=== PATIENT | male | born 1950 | race Caucasian/White ===

== ENCOUNTER 2018-08-10 00:11 | Outpatient (CLI) | payer MEDICARE, BC, SELFPAY ==
[2018-08-10 11:04] LABS: CREATININE 1.02 mg/dL (0.70-1.30); Potassium 4.7 mmol/L (3.5-5.1); TSH 0.91 uIU/mL (0.358-3.74)
[2018-08-11 08:19] LABS: Hemoglobin A1C 6.7 % (4.5-6.2)
[2018-08-11 23:31] LABS: COMMENT (LAB VIEW ONLY) 215.51 mg/dL; Microalb ug/mg Crea 21.1 ug/mg Cr
== END 2018-08-10 00:31 ==
PROVIDERS: PCP General Practice; Visit Provider General Practice
DX: I10 Essential (primary) hypertension (principal); E11.8 Type 2 diabetes mellitus with unspecified complications; E03.9 Hypothyroidism, unspecified
CPT/HCPCS: 36415; 82043; 82565; 82570; 83036; 84132; 84443

== ENCOUNTER 2019-02-24 07:00 | Outpatient (CLI) | payer MEDICARE, BC, SELFPAY ==
[2019-02-24 08:32] LABS: Hemoglobin A1C 6.5 % (4.5-6.2)
== END 2019-02-24 07:20 ==
PROVIDERS: PCP General Practice; Visit Provider General Practice
DX: E11.9 Type 2 diabetes mellitus without complications (principal)
CPT/HCPCS: 36415; 83036

== ENCOUNTER 2019-07-18 09:47 | Observation (INO) | payer MEDICARE, BC, SELFPAY ==
[2019-07-18] VITALS (87 sets, daily range): BP systolic 98–155; BP diastolic 60–106; PULSE 73–128; RESP 14–45; TEMP 36.5–36.9; O2SAT 93–100
[2019-07-18] MEDS: Normal Saline Flush 10 ML SYR IVP (10:10)
[2019-07-18] MEDS: Aspirin 81 MG CHEW 324 MG CH (10:15)
[2019-07-18 10:31] LABS: Abs Immature Grans 0.01 k/cumm (0.0-0.09); Absolute Basophil Count 0.02 k/cumm (0.0-0.2); Absolute Eosinophil Count 0.12 k/cumm (0.0-0.7); Absolute Monocyte Count 0.59 k/cumm (0.11-0.7); Absolute Neutrophil Count 4.58 k/cumm (1.2-6.7); Basophils % 0.3; Eosinophils % 1.8; HCT 42.5 % (40.0-50.0); HGB 14.6 g/dL (13.5-17.5); Immature Grans % 0.2; Lymphocytes % 19.6; Mean Corp. HGB Concentration 34.4 g/dL (32.0-36.0); Mean Corpuscular Hemoglobin 31.9 pg (27.0-33.0); Mean Platelet Volume 9.9 fL (8.0-11.0); Monocytes % 8.9; Neutrophils % 69.2; Platelet Count 260 x1000/uL (130-400); RBC 4.57 m/cumm (4.50-6.00); RBC Distribution Width 12.8 % (11.8-14.1); White Blood Cell Count 6.62 k/cumm (4.4-10.8)
--- NOTE | 2019-07-18 10:42 | DI.RAD_ITS ---
EXAM: XR CHEST 2V PA LATERAL INDICATION: chest pain. COMPARISON: No exams were available for comparison TECHNIQUE: 2D digital imaging was performed. FINDINGS: Heart is enlarged. Lungs are clear. No pleural effusion seen. IMPRESSION: Negative examination of the chest.
[2019-07-18 10:52] LABS: ALT 67 U/L (16-63); AST 40 U/L (15-37); Albumin 3.8 g/dL (3.4-5.0); Alkaline Phosphatase 69 U/L (46-116); Anion Gap 10.5 mmol/L (3-11); BUN 16 mg/dL (7-18); Bilirubin, Total 1.2 mg/dL (0.2-1.0); CO2 26.5 mmol/L (21.0-32.0); Calcium 9.2 mg/dL (8.5-10.1); Chloride 101 mmol/L (98-107); Estimated GFR 59.86 (mL/min/1.73m2); Glucose 189 mg/dL (70-100); Magnesium 1.4 mg/dL (1.8-2.4); Potassium 4.4 mmol/L (3.5-5.1); Sodium 138 mmol/L (136-145); Total Protein 7.5 g/dL (6.4-8.2)
[2019-07-18 10:53] LABS: Troponin I < 0.05 ng/mL (0.00-0.06)
--- NOTE | 2019-07-18 11:46 | NUR.NOTE ---
patient medicated per PA order Nursing Note:
[2019-07-18] MEDS: Normal Saline 1,000 ML 1000 ML IV (12:34)
--- NOTE | 2019-07-18 12:55 | NUR.NOTE ---
pt removed cervical collar on his own while in radiology reapplied with assist from additional RN Nursing Note:
--- NOTE | 2019-07-18 13:08 | NUR.NOTE ---
cervical collar removed per radiologist negative read Nursing Note:
[2019-07-18 13:58] LABS: Troponin I < 0.05 ng/mL (0.00-0.06)
[2019-07-18] MEDS: MAGNESIUM SULFATE 4 GM/100 ML BAG IVPB (14:51)
--- NOTE | 2019-07-18 16:20 | W.ED.GENAD ---
Discharge Plan Discharge Details Chief Complaint: Chest Pain Primary Care Provider: Dav Ortega ED Provider: Gila Huang Home Meds and New Rx's Prescriptions: No Action levothyroxine 175 MCG tablet 175 mcg PO DAILY RF: 0 simvastatin 80 MG tablet 80 mg PO DAILY RF: 0 metformin 1,000 MG tablet 1,000 mg PO BID RF: 0 lisinopril 40 MG tablet 40 mg PO DAILY RF: 0 insulin glargine [Basaglar KwikPen U-100 Insulin] 100 UNIT/1 ML insulin pen 80 unit SQ DAILY RF: 0 Metoprolol Succinate [Toprol Xl] 50 MG TAB.ER.24H 100 mg PO DAILY RF: 0 aspirin 81 MG tablet,chewable 81 mg PO DAILY RF: 0 multivitamin 1 EACH capsule 1 ea PO DAILY RF: 0 Medical Decision Making This is a very pleasant 68-year-old man accompanied by his for chest pain associated with chest pressure. Accompanied by tingling in the left arm. Concern for possible ACS given patient's medical history and family history. Initial EKG reviewed with my attending Dr. Elaine reveals a rate of 125, normal axis and normal rhythm. Sinus tachycardia noted with no associated ST changes. Attempted vagal maneuver which had no change on his heart rate. Labs ordered for concern of non-ST elevation MT. Patient reevaluated approximately 20 minutes after initial presentation. Patient's heart rate had improved to approximately 100 bpm. Patient's pain continues to improve to approximately 1 out of 10 but does have persistent chest pressure. Patient's initial troponin returned negative. Serial EKG was ordered and ultimately. Access remains normal, heart rate 100, rhythm is regular, junctions point elevation noted diffusely. Reviewed with my attending Dr. Elaine. Given mild change in EKG .3 mg sublingual nitro was given. Patient did report poor entire relief of chest pressure with this dose of nitro within 5 to 10 minutes. 3rd EKG was ordered with no significant change from the second. Given patient's initial complaints and story, full relief of his chest pressure with a sublingual nitro in conjunction to a heart score of 5 I feel its best to keep this patient in the hospital for further evaluation of his complaints today specifically to have a stress test. I spoke with the hospitalist who will accept the patient for admission however will not be able to perform a stress test until Sunday and does recommend reaching out to other facilities whom may have stress testing over the weekend. Eating at the bedside and feeling well. Patient remained stable Neither [facility] nor [facility] have appropriate beds to facilitate this patient's nonstress test this weekend. Patient will be admitted to [facility] for further evaluation of his complaints. Patient agrees with plan of care. Hospitalist agrees to plan of care and will admit the patient HPI General Date/Time Provider Initiated Documentation: 07/18/19 10:11. HPI Narrative: Very pleasant 68-year-old man accompanied by his presents to the emergency room this morning for onset of chest pain at approximately 915 reported to be 8 out of 10 with associated chest pressure. Accompanied left arm tingling was reported. Denies headache, dizziness, nausea, vomiting or abdominal pain. No radiation toward his back or neck. Patient reports nothing made the pain worse. Patient does report the pain has improved steadily since arrival to the emergency room. Patient on presentation reports approximately 3 out of 10 chest pain which continues to improve. Patient denies any diaphoresis or clamminess. Patient has taken no medications prior to arrival. Denies taking aspirin this morning. Patient has a history of hypertension, diabetes. Family history is significant for paternal heart attack at age 55. Patient has no personal history of cardiac events. Patient does get stress tests occasionally and last stress test was approximately 4 years ago and reportedly normal. Denies difficulty breathing, shortness of breath or wheezing. No recent illness. Related Data Home Medications Medication Instructions Recorded Confirmed Metoprolol Succinate [Toprol Xl] 100 mg PO DAILY tab-cap NS 02/26/18 04/18/18 aspirin 81 mg PO DAILY tab-cap 02/26/18 04/18/18 insulin glargine [Basaglar KwikPen 80 unit SQ DAILY NS 02/26/18 04/18/18 U-100 Insulin] levothyroxine 175 mcg PO DAILY tab-cap NS 02/26/18 04/18/18 lisinopril 40 mg PO DAILY tab-cap NS 02/26/18 04/18/18 metformin 1,000 mg PO BID NS 02/26/18 04/18/18 simvastatin 80 mg PO DAILY NS 02/26/18 04/18/18 multivitamin 1 ea PO DAILY 03/26/18 04/18/18 Allergies Allergy/AdvReac Type Severity Reaction Status Date / Time No Known Allergies Allergy Unverified 04/18/18 09:05 General Stated Complaint: Chest Pain SHARAD: 2 Review of Systems Review of Systems ROS Unobtainable: All systems reviewed & are unremarkable except as noted in HPI and below Constitutional Constitutional: Denies chills, Denies excessive sweating, Denies fever(s), Denies lethargy and Denies weakness Cardiovascular Cardiovascular: Denies rapid heart rate, Denies edema, Denies irregular heart rhythm, Denies lightheadedness, Reports radiating jaw, neck or arm pain and Denies dyspnea on exertion Respiratory Respiratory: Denies cough and Denies dyspnea on exertion Gastrointestinal Gastrointestinal: Denies abdominal pain, Denies belching, Denies change in bowel habits, Denies nausea and Denies vomiting Neurologic Neurologic: Denies weakness Endocrine Endocrine: Denies excessive sweating [facility] Medical History Diabetes Hypertension Hypogonadism in male Hypothyroidism 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 Fry Family History Mother , Breast cancer at age 76. Breast cancer Father Throat cancer Heart disease Myocardial infarction Sister No problems noted. Social History Smoking/Tobacco Use Status: Former Tobacco Use Alcohol Intake: current Alcohol Intake frequency: holidays/special occasions only Drug use: Never Do you feel safe at home: Yes Do you feel safe in your relationship?: Yes Exam Narrative Exam Narrative: CONST: Healthy appearing patient, in no acute distress. Well hydrated. Alert and alert. HENMT: Head nomocephalic, normal to inspection. Atraumatic. Hearing grossly normal. External ear canal no erythema or swelling. TM normal bilaterally. Nose normal to inspection. No rhinnorhea. Normal facial exam. Oral mucosa normal. Tounge normal. Dentition normal. Normal posterior oropharynx. Uvula midline. EYES: General normal appearance. Alignment normal. Eyelids normal. Conjunctiva normal. NECK: Normal visual inspection. FROM. No lymphadenopathy. Trachea midline. No Midline tenderness. CHEST: Normal insepection of the chest. RESP: Normal respiratory effort. Speaking full sentences. No cough. No wheezing. No retractions. Clear to auscaltation. Breath sound equal and present bilaterally. CARDIO: No JVD. Normal PMI. Tachycardic on presentation. Regular Rhythm. Normal peripheral pulses. GI: Normal inspection of abdomen. No distension. Soft. Nontender. Bowel sounds present in all 4 quadrants. No rebound. No gaurding. MUSCULOSKELETAL: Normal Gait. FROM of all extremities. Distal neurovascularly intact. Sensation intact distally. No lower leg edema bilaterally SKIN: Normal. Dry. No rashes. NEURO: Alert and awake. Speech clear. PSYCH: Normal affect. Cooperative. Course Vital Signs Vital signs: Vital Signs Respiratory Rate 28 H 07/18/19 09:53 Pulse Oximetry 99 07/18/19 09:53 Temperature 36.7 C 07/18/19 09:56 Temperature Source Temporal Artery Scan 07/18/19 09:56 Pulse 86 07/18/19 16:00 Pulse 84 07/18/19 16:01 Respiratory Rate 40 H 07/18/19 16:00 Respiratory Effort 07/18/19 10:17 Respiratory Depth Normal 07/18/19 10:17 Respiratory Pattern Normal 07/18/19 10:17 Blood Pressure 134/82 07/18/19 16:00 Blood Pressure Mean 92 07/18/19 16:00 Blood Pressure Position Supine 07/18/19 09:56 Pulse Oximetry 98 07/18/19 16:01 Oxygen Delivery Method Room Air 07/18/19 11:47 Oxygen Flow Rate 0 07/18/19 11:47 Pain Level 1 07/18/19 12:23 Lab/Test Results Lab/Test Results: Laboratory Tests Range/Units 07/18/19 07/18/19 07/18/19 10:10 10:10 13:16 WBC (4.4-10.8) k/cumm 6.62 RBC (4.50-6.00) m/cumm 4.57 Hgb (13.5-17.5) g/dL 14.6 Hct (40.0-50.0) % 42.5 MCV (80-95) fL 93.0 MCH (27.0-33.0) pg 31.9 MCHC (32.0-36.0) g/dL 34.4 RDW (11.8-14.1) % 12.8 Plt Count (130-400) x1000/uL 260 MPV (8.0-11.0) fL 9.9 Immature Gran % 0.2 Neutrophils % 69.2 Lymphocytes % 19.6 Monocytes % 8.9 Eosinophils % 1.8 Basophils % 0.3 Absolute Neutrophils (1.2-6.7) k/cumm 4.58 Absolute Lymphocytes (1.2-3.4) k/cumm 1.30 Absolute Monocytes (0.11-0.7) k/cumm 0.59 Absolute Eosinophils (0.0-0.7) k/cumm 0.12 Absolute Basophils (0.0-0.2) k/cumm 0.02 Sodium (136-145) mmol/L 138 Potassium (3.5-5.1) mmol/L 4.4 Chloride (98-107) mmol/L 101 Carbon Dioxide (21.0-32.0) mmol/L 26.5 Anion Gap (3-11) mmol/L 10.5 BUN (7-18) mg/dL 16 Creatinine (0.70-1.30) mg/dL 1.20 Estimated GFR/1.73 m2 (mL/min/1.73m2) 59.86 Glucose (70-100) mg/dL 189 H Calcium (8.5-10.1) mg/dL 9.2 Magnesium (1.8-2.4) mg/dL 1.4 L Total Bilirubin (0.2-1.0) mg/dL 1.2 H AST (15-37) U/L 40 H ALT (16-63) U/L 67 H Alkaline Phosphatase (46-116) U/L 69 Troponin I (0.00-0.06) ng/mL < 0.05 < 0.05 Total Protein (6.4-8.2) g/dL 7.5 Albumin (3.4-5.0) g/dL 3.8
[2019-07-18 17:22] LABS: Troponin I < 0.05 ng/mL (0.00-0.06)
[2019-07-18] MEDS: Heparin 5,000 UNITS/ML VIAL 5000 UNITS SC (18:28)
--- NOTE | 2019-07-18 19:08 | HPE_ITS ---
Date of service: 07/18/19 Time of Service: 19:08 Assessment and Plan Assessment and plan (1) Chest pain: Status: Acute Assessment and plan: Chest pain that occurred with exertion. Troponin negative x3. Chest pain resolved with one nitroglycerine. Pending stress testing on Sunday. PRN nitro for Chest pain. Aspirin 325 mg daily. Hold heparin and plavix per [facility] recommendations as appears to be stable angina. (2) Hypertension: Status: None Assessment and plan: Not currently hypertensive. Continue home regimen with lisinopril and metoprolol. Monitor Blood pressure. (3) Diabetes: Status: None Assessment and plan: Appears well controlled, Hgb A1c in 02/2019 6.5. Repeat Hgb A1c tomorrow morning. Continue home lantus. Hold metfromin. Monitor blood glucose at with short acting insulin via sliding scale. (4) Hypothyroidism: Status: None Assessment and plan: Continue levothyroxine. (5) DVT prophylaxis: Status: Acute Assessment and plan: Subcutaneous heparin. (6) Discharge planning issues: Status: Acute Assessment and plan: He is a full code. MPI Sunday. This case was discussed with Dr. Quintana who is in agreement. History of Present Illness History of Present Illness Chief Complaint: Chest pain Narrative: Mika Skinner is a very pleasant 68 year old man with a past medical history significant for diabetes, hypertension, hyperlipidemia, hypogonadism and hypothyroidism who presented to the ED today with reports of chest pain. He reports that he was crawling around in a closet, moving guns around, preparing for hunting season, when he had sudden onset of severe substernal chest pain. He got up out of the closet and felt dizzy, he then noticed tingling in the fingers of his left hand. His transported him to the ED right away. The pain continued and began to decrease while in the ED. He was given one nitroglycerine tablet with complete resolution of his chest pain. He had a normal EKG, repeat EKG showed slight J point elevation, with follow up with no change. He had no acute ST changes. He was tacycardic on presentation. His troponin was negative. Magnesium was low at 1.4, glucose mildly elevated. He was referred for admission. Due to no stress testing availability over the weekend, [facility] and [facility] were consulted, however, they did not have beds available. He is admitted to the med/surg floor for fur ther evaluation and management. At the time of his admission, he denies any chest pain/pressure or palpitations. He denies diaphoresis or shortness of breath with the episode and at present, no wheezing or coughing. He denies nausea, vomiting, diarrhea, abdominal pain. He denies lower extremity edema. He notes that his left calf is always larger than his right. He reports that he was in his usual state of health prior to the onset of the chest pain earlier. He reports that his father has had MIs, with hx of CABG, and his uncle has had an ME in the past. Review of Systems Review of Systems ROS Unobtainable: All systems reviewed & are unremarkable except as noted in HPI and below PFSH Medical History Diabetes Hypertension Hypogonadism in male Hypothyroidism 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 Fry Family History Mother , Breast cancer at age 76. Breast cancer Father Throat cancer Heart disease Myocardial infarction Sister No problems noted. Social History Smoking/Tobacco Use Status: Former Tobacco Use Alcohol Intake: current Alcohol Intake frequency: holidays/special occasions only Drug use: Never Do you feel safe at home: Yes Do you feel safe in your relationship?: Yes Meds Home Medications and Allergies Home Medications Medication Instructions Recorded Confirmed Type Basaglar KwikPen U-100 Insulin 80 unit SQ DAILY NS 02/26/18 07/18/19 History Metoprolol Succinate [Toprol Xl] 75 mg PO DAILY tab-cap NS 02/26/18 07/18/19 History aspirin 81 mg PO DAILY tab-cap 02/26/18 07/18/19 History levothyroxine 175 mcg PO DAILY tab-cap NS 02/26/18 07/18/19 History lisinopril 40 mg PO DAILY tab-cap NS 02/26/18 07/18/19 History metformin 1,000 mg PO BID NS 02/26/18 07/18/19 History simvastatin 80 mg PO DAILY NS 02/26/18 07/18/19 History multivitamin 1 ea PO DAILY 03/26/18 07/18/19 History Allergies Allergy/AdvReac Type Severity Reaction Status Date / Time No Known Allergies Allergy Unverified 07/18/19 17:10 Exam Narrative Exam Narrative: General: Well-appearing man, laying in bed with head of bed elevated, alert and oriented x3, pleasant cooperative, answers questions appropriately. In no acute distress. HEENT: Normocephalic, atraumatic, pupils equal round, extraocular movements intact, mucous membranes moist. Neck: Supple, no JVD. Cardiovascular: Heart has regular rate and rhythm, no murmur appreciated, non- tachycardic. Respiratory: Respirations even and unlabored, lung sounds clear to auscultation throughout. GI: normal bowel sounds, soft, nondistended, nontender on palpation. Extremities: no clubbing, cyanosis or edema. L calf larger than right, no calf swelling or tenderness. L harding with scar from previous diabetic ulcer. Results Labs Result diagrams: 07/18/19 10:10 07/18/19 10:10 Labs: Laboratory Results - last 24 hr 07/18/19 07/18/19 07/18/19 10:10 10:10 13:16 WBC 6.62 RBC 4.57 Hgb 14.6 Hct 42.5 MCV 93.0 MCH 31.9 MCHC 34.4 RDW 12.8 Plt Count 260 MPV 9.9 Immature Gran % 0.2 Neutrophils % 69.2 Lymphocytes % 19.6 Monocytes % 8.9 Eosinophils % 1.8 Basophils % 0.3 Absolute Neutrophils 4.58 Absolute Lymphocytes 1.30 Absolute Monocytes 0.59 Absolute Eosinophils 0.12 Absolute Basophils 0.02 Sodium 138 Potassium 4.4 Chloride 101 Carbon Dioxide 26.5 Anion Gap 10.5 BUN 16 Creatinine 1.20 Estimated GFR/1.73 m2 59.86 Glucose 189 H Calcium 9.2 Magnesium 1.4 L Total Bilirubin 1.2 H AST 40 H ALT 67 H Alkaline Phosphatase 69 Troponin I < 0.05 < 0.05 Total Protein 7.5 Albumin 3.8 07/18/19 16:59 WBC RBC Hgb Hct MCV MCH MCHC RDW Plt Count MPV Immature Gran % Neutrophils % Lymphocytes % Monocytes % Eosinophils % Basophils % Absolute Neutrophils Absolute Lymphocytes Absolute Monocytes Absolute Eosinophils Absolute Basophils Sodium Potassium Chloride Carbon Dioxide Anion Gap BUN Creatinine Estimated GFR/1.73 m2 Glucose Calcium Magnesium Total Bilirubin AST ALT Alkaline Phosphatase Troponin I < 0.05 Total Protein Albumin Last Vital Signs Temp 36.7 C 07/18/19 17:40 Pulse 82 07/18/19 18:10 Resp 18 07/18/19 17:40 BP 144/81 H 07/18/19 17:40 Pulse Ox 99 07/18/19 17:40
[2019-07-19] MEDS: Heparin 5,000 UNITS/ML VIAL 5000 UNITS SC ×2 (01:57→11:10)
[2019-07-19 04:29] VITALS: BP 130/76; PULSE 71; RESP 20; TEMP 36.5; O2SAT 99
[2019-07-19] MEDS: Levothyroxine 175 MCG TAB PO (05:59)
[2019-07-19 07:00] VITALS: PULSE 76
[2019-07-19 07:39] LABS: HCT 42.6 % (40.0-50.0); HGB 14.3 g/dL (13.5-17.5); Mean Corp. HGB Concentration 33.6 g/dL (32.0-36.0); Mean Corpuscular Hemoglobin 31.5 pg (27.0-33.0); Mean Corpuscular Volume 93.8 fL (80-95); Mean Platelet Volume 10.4 fL (8.0-11.0); Platelet Count 258 x1000/uL (130-400); RBC 4.54 m/cumm (4.50-6.00); White Blood Cell Count 5.21 k/cumm (4.4-10.8)
[2019-07-19 07:45] VITALS: BP 124/84; PULSE 73; RESP 18; TEMP 36.1; O2SAT 98
[2019-07-19 07:47] LABS: Anion Gap 9.5 mmol/L (3-11); BUN 14 mg/dL (7-18); CO2 28.5 mmol/L (21.0-32.0); CREATININE 0.98 mg/dL (0.70-1.30); Calcium 9.2 mg/dL (8.5-10.1); Chloride 102 mmol/L (98-107); Glucose 106 mg/dL (70-100); Potassium 4.5 mmol/L (3.5-5.1); Sodium 140 mmol/L (136-145)
--- NOTE | 2019-07-19 07:51 | PHARADMIT ---
Admission Pharmacy Clinical Review chest pain Code Status Full Code Current Weight Wgt-109 kg Renally Cleared and Narrow Therapeutic Index Meds CrCl~-57 mL/min Meds-OK QTc Value / Action Taken QTc-473 (No QT meds) BP Control, Fever BP-130/76 Tmax-36.6C Electrolytes reviewed Na-138 K+4.4 Mag-1.4 DVT Prophylaxis Heparin-SQ, ASA Opiate Usage / Scheduled Bowel Regimen Ordered No Yes Plt/SCr for Heparin / Enoxaparin Plts-260 SCr-1.2 INR for Warfarin NA H/H stable, WBC/Bands H&H-14.6/42.5 WBC-6.62 Antibiotic appropriateness none Cultures and Sensitivities none Surgical ABX d/c within 24 hr NA DM control / Insulin Dosing BG-189 Aspart,Glargine Heart Failure (Check EF%) (BALJEET's, B-Block, Diuretics) Lisinopril, Toprol-XL, NTG IV to PO Switch No Home Meds Reviewed Yes Home Meds Not Ordered Metformin. Comments Troponi < 0.05 X3
[2019-07-19 07:53] LABS: Magnesium 1.9 mg/dL (1.8-2.4)
[2019-07-19 08:28] LABS: Troponin I < 0.05 ng/mL (0.00-0.06)
--- NOTE | 2019-07-19 08:29 | INITIAL_ITS ---
- If Service Date Differs Date of service: 07/19/19 Time of Service: 08:29 Care Management Initial Assess REASON FOR HOSPITALIZATION:: Chest pain PAST MEDICAL HISTORY/PAST SURGICAL HISTORY:: Diabetes. Hypertension. Hypogonadism in male. Hypothyroidism. Squamous cell cancer of skin of left hand. Excision, Lesion (04/18/18). squamous cell cancer left dorsum of hand with skin graft from left thigh. Repair of umbilical hernia. 2010-Dr. Fry PREVIOUS FUNCTIONAL STATUS/SOCIAL/FAMILY SUPPORTS:: Mika lives in [place], [place] with his SO Danitza
[2019-07-19] MEDS: Lisinopril 20 MG TAB 40 MG PO (08:47)
[2019-07-19] MEDS: Multivitamin TAB 1 TAB PO (08:47)
[2019-07-19] MEDS: Aspirin 325 MG TAB PO (08:48)
[2019-07-19] MEDS: Metoprolol CR 50 MG TABCR 75 MG PO (08:49)
[2019-07-19] MEDS: Insulin Glargine 300 UNITS/3 ML PEN 80 UNITS SC (08:50)
[2019-07-19] MEDS: Magnesium Oxide 400 MG TAB PO (11:11)
[2019-07-19 11:40] VITALS: BP 122/81; PULSE 75; RESP 18; TEMP 36.5; O2SAT 100
[2019-07-19] MEDS: Insulin Aspart 300 UNITS/3 ML PEN SC (11:51)
--- NOTE | 2019-07-19 12:25 | W.PM.DS.N ---
Date of service: 07/19/19 Time of Service: 12:25 DS: Diagnosis Discharge Diagnosis (1) Chest pain: Start date: 07/19/19 Start time: 12:25 Status: Acute Asessment and Plan: Resolved after one nitro last night. NSR at this time. Ambulating around room. Would prefer to go home and have stress as an outpatient as he states this is the best I have ever felt. Will be discharged home with Outpatient maren scan and prn nitro (2) Hypertension: Status: None (3) Diabetes: Status: None (4) Hypothyroidism: Status: None (5) DVT prophylaxis: Status: Acute (6) Discharge planning issues: Status: Acute Discharge Plan Disposition Patient Disposition: HOME Condition: Good Discharge Details Chief Complaint: Chest Pain Reason For Visit: CHEST PAIN Admit Date/Time: 07/18/19 16:22 Admit Provider: Sheryl Quintana Attending Provider: Sheryl Quintana Primary Care Provider: Dav Ortega ED Provider: Gila Huang Hospital Course Hospital Course: Mr. Skinner, Iis a 68 y.o. male with PMH DM, HTN, Hyperlipidemia, hypogonadism, and hypothryoidism, admitted from [facility] emergency department yesterday for Chest pain. Patient was crawling around in a closet, moving guns around, preparing for hunting season, when he had sudden onset of severe substernal chest pain. He got up out of the closet and felt dizzy, he then noticed tingling in the fingers of his left hand. His transported him to the ED right away. He was given a nitro tab in the ED with complete resolution of CP. EKG was no change from follow up. Troponins flat negative. He was admitted for a stress test on Sunday. CXR was normal Today however he is feeling great the best I have ever felt and would like to be discharged home with an outpatient stress test. At this time he has had NO Chest pain since admission, no CONTRERAS, ambulatory around room with HR in 70's NSR. He would benefit from an outpatient stress in which I will schedule and nitro PRN for return Chest pain. Also advised patient that if his chest pain returns we will need to return to the emergency department. At this time he denies CP, SOB, N/V/D. Home Meds and New Rx's Prescriptions: New nitroglycerin 0.4 mg tablet, sublingual 0.4 mg SL Q5M PRN (Reason: chest pain) Qty: 30 RF: 0 Continued levothyroxine 175 MCG tablet 175 mcg PO DAILY RF: 0 simvastatin 80 MG tablet 80 mg PO DAILY RF: 0 metformin 1,000 MG tablet 1,000 mg PO BID RF: 0 lisinopril 40 MG tablet 40 mg PO DAILY RF: 0 Basaglar KwikPen U-100 Insulin 100 UNIT/1 ML insulin pen 80 unit SQ DAILY RF: 0 Metoprolol Succinate [Toprol Xl] 50 MG TAB.ER.24H 75 mg PO DAILY RF: 0 aspirin 81 MG tablet,chewable 81 mg PO DAILY RF: 0 multivitamin 1 EACH capsule 1 ea PO DAILY RF: 0 Discharge Instructions Instructions: Cardiac Stress Test (GEN), Chest Pain (GEN) Additional Instructions: Take Nitro for Chest Pain, 1 tab and sit down; if no relieve take a second one after 5 mins, if no relief take a 3 nitro after 5 mins and call 911. Do not take nitro if you take any medication for erectile dysfunction. It can dangerously lower your blood pressure. Return if you have Chest pain or shortness of breath. Follow up with outpatient for exercise stress test. Activity:: Activity as Tolerated Equipment/Supplies:: No Equipment Needed Diet:: Low Sodium Discharge Orders Discharge Orders: Discharge Order (Routine); Ordered 07/19/19 Ordered By: Cynthia Voss Other Ambulatory Orders: Nuclear Medicine Stress Test (Outpt) (ONCE) Timeframe: [id number] Location: None Selected Ordered By: Cynthia Voss DS: Summary Status at Discharge Functional status at discharge: independent ambulation Overall status at discharge: patient is back to baseline Mental Status: mental status grossly normal Speech and Movement: speech and movement normal Mood: congruent mood Affect: normal affect Exam Narrative Exam Narrative: General: Well-appearing man, sitting up in chair. Alert and oriented x3, pleasant cooperative, answers questions appropriately. In no acute distress. HEENT: Normocephalic, atraumatic, pupils equal round, extraocular movements intact, mucous membranes moist. Neck: Supple, no JVD. Cardiovascular: Heart has regular rate and rhythm, no murmur appreciated, non-tachycardic. Respiratory: Respirations even and unlabored, lung sounds clear to auscultation throughout. GI: normal bowel sounds, soft, nondistended, nontender on palpation. Extremities: no clubbing, cyanosis or edema. L calf larger than right, no calf swelling or tenderness. L harding with scar from previous diabetic ulcer. Psych Mental Status: mental status grossly normal Speech and Movement: speech and movement normal Mood: congruent mood Affect: normal affect DS: Data Vitals/I&O Vitals and I&O: Vital Signs Temperature 36.5 C 07/19/19 11:40 Temperature Source Tympanic 07/19/19 11:40 Pulse 75 07/19/19 11:40 Pulse Rhythm Regular 07/19/19 08:00 Pulse 85 07/18/19 16:50 Respiratory Rate 18 07/19/19 11:40 Respiratory Effort Non-Labored 07/19/19 08:00 Respiratory Depth Normal 07/19/19 08:00 Respiratory Pattern Normal 07/19/19 08:00 Blood Pressure 122/81 07/19/19 11:40 Blood Pressure Mean 81 07/18/19 16:47 Blood Pressure Position Supine 07/18/19 09:56 Pulse Oximetry 100 07/19/19 11:40 Oxygen Delivery Method Room Air 07/19/19 11:40 Oxygen Flow Rate 0 07/19/19 11:40 Pain Level 0 07/19/19 11:40 Intake & Output 07/18/19 07/19/19 07/19/19 23:59 11:59 23:59 Intake Total 1681.25 / 1681.25 Output Total 500 / 500 Balance 1181.25 / 1181.25 Weight 109 kg Intake: IV 1091.25 / 1091.25 Oral 590 / 590 Output: Urine 500 / 500 Other: Urine Color Yellow Straw Urine Appearance Clear Clear Urine Odor None Comment pt denies any urinary issues Voiding Methods Toilet # Voids 1 Data Completed and Pending Completed studies during hospitalization [Text1]: Exam(s) a RAD:XR chest 2V PA & lateral EXAM: XR CHEST 2V PA LATERAL INDICATION: chest pain. COMPARISON: No exams were available for comparison TECHNIQUE: 2D digital imaging was performed. FINDINGS: Heart is enlarged. Lungs are clear. No pleural effusion seen. IMPRESSION: Negative examination of the chest. Labs on day of discharge: Labs from last 24 hours 07/19/19 07/19/19 07/19/19 06:15 06:15 06:15 WBC 5.21 RBC 4.54 Hgb 14.3 Hct 42.6 MCV 93.8 MCH 31.5 MCHC 33.6 RDW 13.0 Plt Count 258 MPV 10.4 Sodium 140 Potassium 4.5 Chloride 102 Carbon Dioxide 28.5 Anion Gap 9.5 BUN 14 Creatinine 0.98 Estimated GFR/1.73 m2 >= 60.00 Glucose 106 H D Hemoglobin A1c Pending Calcium 9.2 Magnesium 1.9 Troponin I < 0.05 07/18/19 07/18/19 16:59 13:16 WBC RBC Hgb Hct MCV MCH MCHC RDW Plt Count MPV Sodium Potassium Chloride Carbon Dioxide Anion Gap BUN Creatinine Estimated GFR/1.73 m2 Glucose Hemoglobin A1c Calcium Magnesium Troponin I < 0.05 < 0.05 PFSH Medical History Diabetes Hypertension Hypogonadism in male Hypothyroidism 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 Fry Family History Mother , Breast cancer at age 76. Breast cancer Father Throat cancer Heart disease Myocardial infarction Sister No problems noted. Social History Smoking/Tobacco Use Status: Former Tobacco Use Alcohol Intake: current Alcohol Intake frequency: holidays/special occasions only Drug use: Never Do you feel safe at home: Yes Do you feel safe in your relationship?: Yes
[2019-07-19 13:38] VITALS: PULSE 88
--- NOTE | 2019-07-20 15:10 | CMPROGNOTE_ITS ---
- If Service Date Differs Date of service: 07/20/19 Time of Service: 15:10 Care Management Progress Note S/O: LING was unable to meet with Mika prior to his discharge however was able to follow up with him and his SO over the phone today. SO Michelle is concerned that Mika's stress test is not scheduled until the 29 of July. Michelle is concerned that when Mika was admitted the ED provider shared that he would be here until Sunday when the stress test would be done. Michelle feels the test should be done sooner then the . CM reviewed discharge information and medications, Mika was able to obtain the Nitroglycerin from his pharmacy he is also is taking his betablocker, statin and aspirin daily. Mika has been symptom free since admission and per provider wanted to be discharged home. LING contacted radiology and spoke with Ishmael the test was ordered as routine so it was scheduled out for the . CM reviewed concerns with discharging provider and a follow up call was placed by provider to the patient and his SO to address concerns and review plan. LING contacted [facility] in radiology and they will attempt to get patient in this week. Mika was instructed to return to the ED if he has any reoccurrence of symptoms. Both Mika and Michelle agreed with the plan and radiology will contact Mika with a new time for procedure. P: Mika will have follow up stress and echo as outpatient. He will return to the ED if his symptoms return and use his nitro as instructed.
[2019-07-21 06:41] LABS: Hemoglobin A1C 6.6 % (4.5-6.2)
== END 2019-07-19 14:24 | disposition home or self-care (01) ==
LOC: ER 16:43 → MS 17:37
PROVIDERS: Nurse Practitioner; Admitting Provider Internal Medicine; Emergency Provider Physician Assistant; PCP General Practice; Visit Provider Internal Medicine
DX: R07.89 Other chest pain (principal); I10 Essential (primary) hypertension; E11.9 Type 2 diabetes mellitus without complications; E03.9 Hypothyroidism, unspecified; Z79.4 Long term (current) use of insulin
CPT/HCPCS: 36415; 80048; 80053; 85027; 93005; 96361; 96365; 96366; 99219; 99239; 99285; 71046; 83036; 83735; 84484; 85025; 93010; 99217; G0378; J1644; J3475

== ENCOUNTER 2019-07-24 01:59 | Outpatient (CLI) | payer MEDICARE, BC, SELFPAY ==
--- NOTE | 2019-07-24 11:30 | DI.NM_ITS ---
APPROVED REPORT Exam: Pharmacologic Patient Location: Out-Patient Room/Bed: Stress Nurse: Blossom Barriga RN Rhythm: 1st degree heart block w/ NH 0.22 Indications: Family history CAD Medical History Medical History: Hypothyroidism Allergies: No known drug allergies Cardiac Risk Factors: FHX of CAD, DM Pretest Chest Pain Characteristics: No chest pain Exercise History: Daily ADL's Stress Test Details Test: Exercise stress testing was performed using a Dean protocol. Nuclear Acquisition: Stress Tc-99m/Stress Tc-99m 1 day Rest Isotope: Tc-99m Sestamibi. Dose: 10.3 Date: 07/24/2019 Injection Time: 1145 Stress Isotope: Tc-99m Sestamibi. Dose: 31.0 Date: 07/24/2019 Injection Time: 1310 HR Resting HR: 76 bpm Max Heart Rate (APMHR): 150 bpm Max HR Achieved: 132 bpm Target HR (85% APMHR): 127 bpm % of APMHR: 88 Recovery HR: 96 bpm HR response to stress: Normal HR response to exercise. BP Resting BP: 150/90 mmHg Max BP: 190/84 mmHg Recovery BP: 154/82 mmHg BP response to stress: Normal blood pressure response to exercise. Hypertensive at baseline. ECG Resting ECst degree AV block Stress ECG: Sinus Tachycardia ST Change: No significant ST segment changes Arrhythmia: None Recovery ECst degree AV block Recovery ST Change: No significant ST segment changes Recovery Arrhythmia: None Clinical Reason for Termination: Shortness of breath Stress Symptoms: Chest pain Exercise duration: 6 minutes 39 seconds min Highest Stage Achieved: Stage 3: 3.4 mph at 14% grade. Exercise capacity: 8.03 METs Overall Exercise Capacity for Age: Mildly diminished functional capacity Scale: Active Stress ECG Conclusion 1. Patient demonstrated good exercise tolerance. This is a maximal effort study. 2. Imaging portion of study is normal. 3. EKG portion of study is normal. 4. This represents a normal stress test. Test Summary supine 09:39 76 150/90 standing 81 142/76 1 03:00 10 1.7 103 4.64 152/86 2 02:59 12 2.5 124 7.05 166/72 3 00:38 14 3.4 132 8.03 166/72 1 minute of recovery 120 188/80 3 minutes of recovery 103 190/84 6 minutes of recovery 98 170/84 9 minutes of recovery 97 158/90 12 minutes of recovery 96 154/82
== END 2019-07-24 02:19 ==
PROVIDERS: PCP General Practice; Visit Provider Nurse Practitioner Family
DX: R07.9 Chest pain, unspecified (principal); E03.9 Hypothyroidism, unspecified; I44.0 Atrioventricular block, first degree; Z82.49 Family history of ischemic heart disease and other diseases of the circulatory system
CPT/HCPCS: 78452; 93016; 93018; 93017

== ENCOUNTER 2019-08-01 10:58 | Outpatient (CLI) | payer MEDICARE, BC, SELFPAY ==
[2019-08-01 11:45] LABS: Hemoglobin A1C 6.3 % (4.5-6.2)
[2019-08-01 12:43] LABS: CREATININE 1.03 mg/dL (0.70-1.30); Potassium 5.1 mmol/L (3.5-5.1); TSH 0.34 uIU/mL (0.36-3.74)
== END 2019-08-01 11:18 ==
PROVIDERS: PCP General Practice; Visit Provider General Practice
DX: E11.9 Type 2 diabetes mellitus without complications (principal); I10 Essential (primary) hypertension; E03.9 Hypothyroidism, unspecified
CPT/HCPCS: 36415; 82565; 83036; 84132; 84443

== ENCOUNTER 2019-09-16 01:35 | Outpatient (CLI) | payer MEDICARE, BC, SELFPAY ==
[2019-09-16 09:23] LABS: Hemoglobin A1C 6.2 % (4.5-6.2)
[2019-09-16 10:34] LABS: CREATININE 1.08 mg/dL (0.70-1.30); Potassium 4.8 mmol/L (3.5-5.1); TSH 0.91 uIU/mL (0.36-3.74)
== END 2019-09-16 01:55 ==
PROVIDERS: PCP Nurse Practitioner Family; Visit Provider General Practice
DX: E11.9 Type 2 diabetes mellitus without complications (principal)
CPT/HCPCS: 36415; 82565; 83036; 84132; 84443

== ENCOUNTER 2020-03-08 13:39 | Outpatient (REF) | payer MEDICARE, BC, SELFPAY ==
[2020-03-09 08:38] LABS: HCT 42.3 % (40.0-50.0); HGB 13.9 g/dL (13.5-17.5); Mean Corp. HGB Concentration 32.9 g/dL (32.0-36.0); Mean Corpuscular Hemoglobin 31.9 pg (27.0-33.0); Mean Platelet Volume 10.8 fL (8.0-11.0); Platelet Count 251 x1000/uL (130-400); RBC 4.36 m/cumm (4.50-6.00); RBC Distribution Width 12.7 % (11.8-14.1); White Blood Cell Count 6.84 k/cumm (4.4-10.8)
[2020-03-09 09:29] LABS: ALT 51 U/L (16-63); AST 30 U/L (15-37); Alkaline Phosphatase 61 U/L (46-116); Anion Gap 8.1 mmol/L (3-11); BUN 14 mg/dL (7-18); CO2 30.9 mmol/L (21.0-32.0); CREATININE 1.12 mg/dL (0.70-1.30); Calcium 9.9 mg/dL (8.5-10.1); Calculated LDL 34 mg/dL (<100); Chloride 99 mmol/L (98-107); Cholesterol 117 mg/dL (<200); Glucose 149 mg/dL (74-106); HDL Cholesterol 43 mg/dL (40-60); Potassium 4.8 mmol/L (3.5-5.1); Sodium 138 mmol/L (136-145); TSH (W/Ref FT4) 0.71 uIU/mL (0.36-3.74); Total Protein 6.9 g/dL (6.4-8.2); Triglyceride 204 mg/dL (<150)
== END 2020-03-08 13:59 ==
LOC: NCHCN 13:39
PROVIDERS: PCP Nurse Practitioner Family; Visit Provider Nurse Practitioner Family
DX: I10 Essential (primary) hypertension (principal); E78.5 Hyperlipidemia, unspecified; E03.9 Hypothyroidism, unspecified
CPT/HCPCS: 80053; 80061; 85027; 84443

== ENCOUNTER 2021-09-20 01:38 | Outpatient (CLI) | payer MEDICARE, BC, SELFPAY ==
--- NOTE | 2021-09-20 | DI.US_ITS ---
Exam(s) US AAA SCREENING EXAM: US AAA SCREENING CLINICAL HISTORY: SCREENING FOR AAA, FORMER SMOKER, Z87.891 COMPARISON: No exams were available for comparison FINDINGS: Abdominal Aorta: Proximal: 2.5 x 2.7 cm Mid: 1.8 x 2.3 cm Distal: 1.9 x 1.8 cm Iliac's: Right: 1.4 x 1.5 cm Left: 1.2 x 1.3 cm The doppler velocities are within normal limits. Mild atherosclerosis. IMPRESSION: No evidence of abdominal aortic aneurysm. DATA REPOSITORY:
== END 2021-09-20 01:58 ==
PROVIDERS: PCP Nurse Practitioner Family; Visit Provider Physician Assistant
DX: Z87.891 Personal history of nicotine dependence (principal); Z13.6 Encounter for screening for cardiovascular disorders
CPT/HCPCS: 76706

== ENCOUNTER 2022-01-26 19:50 | Outpatient (REF) | payer MEDICARE, BC, SELFPAY ==
[2022-01-26 17:05] LABS: Hemoglobin A1C 6.4 % (<5.7)
[2022-01-26 17:13] LABS: Microalb ug/mg Crea 13.3 ug/mg Cr
[2022-01-26 17:17] LABS: ALT 38 U/L (16-63); AST 25 U/L (15-37); Albumin 4.1 g/dL (3.4-5.0); Alkaline Phosphatase 64 U/L (46-116); BUN 33 mg/dL (7-18); Bilirubin, Total 0.7 mg/dL (0.2-1.0); CREATININE 1.3 mg/dL (0.70-1.30); Calcium 9.6 mg/dL (8.5-10.1); Calculated LDL 50 mg/dL (<100); Chloride 103 mmol/L (98-107); Cholesterol 133 mg/dL (<200); Estimated GFR 54.11 (mL/min/1.73m2); Glucose 75 mg/dL (74-106); HDL Cholesterol 43 mg/dL (40-60); Potassium 5.3 mmol/L (3.5-5.1); Sodium 141 mmol/L (136-145); TSH 4.46 uIU/mL (0.36-3.74); Total Protein 7.2 g/dL (6.4-8.2); Triglyceride 203 mg/dL (<150)
[2022-01-31 11:49] LABS: Testosterone, Total 259 ng/dL (240-950)
== END 2022-01-26 19:51 | disposition home or self-care (01) ==
LOC: NCHCN 19:50
PROVIDERS: PCP Nurse Practitioner Family; Visit Provider Physician Assistant
DX: E03.9 Hypothyroidism, unspecified (principal); E11.9 Type 2 diabetes mellitus without complications; E23.0 Hypopituitarism; E78.5 Hyperlipidemia, unspecified
CPT/HCPCS: 80053; 80061; 84403; 82043; 82570; 83036; 84443

== ENCOUNTER 2022-05-30 15:36 | Outpatient (REF) | payer MEDICARE, BC, SELFPAY ==
[2022-05-30 15:45] LABS: Hemoglobin A1C 6.6 % (<5.7)
[2022-05-30 15:57] LABS: TSH 3.18 uIU/mL (0.36-3.74)
== END 2022-05-30 15:37 | disposition home or self-care (01) ==
LOC: NCHCN 15:36
PROVIDERS: PCP Nurse Practitioner Family; Visit Provider Physician Assistant
DX: E11.9 Type 2 diabetes mellitus without complications (principal); E03.9 Hypothyroidism, unspecified
CPT/HCPCS: 83036; 84443

== ENCOUNTER 2022-08-21 17:40 | Outpatient (REF) | payer MEDICARE, BC, SELFPAY ==
[2022-08-21 18:55] LABS: ESR 11 mm/hr (0-20)
[2022-08-21 18:58] LABS: HCT 41.8 % (40.0-50.0); HGB 14.2 g/dL (13.5-17.5); MCH 31.9 pg (27.0-33.0); MCV 94 fL (80-95); MPV 10.9 fL (8.0-11.0); Platelet Count 262 10^3/uL (130-400); RBC 4.45 10^6/uL (4.36-5.78); RDW 11.9 % (11.8-14.1); RDW-SD 41.4 fL; WBC 8.36 10^3/uL (4.4-10.8)
[2022-08-21 19:03] LABS: Hemoglobin A1C 6.2 % (<5.7)
== END 2022-08-21 17:41 | disposition home or self-care (01) ==
LOC: NCHCN 17:40
PROVIDERS: Visit Provider Physician Assistant
DX: E11.9 Type 2 diabetes mellitus without complications (principal); M25.50 Pain in unspecified joint
CPT/HCPCS: 85027; 85652; 83036

== ENCOUNTER 2023-03-05 18:06 | Outpatient (REF) | payer MEDICARE, BC, SELFPAY ==
[2023-03-05 15:08] LABS: Hemoglobin A1C 6.2 % (<5.7)
[2023-03-05 15:21] LABS: ALT 22 U/L (16-63); AST 15 U/L (15-37); Albumin 4.1 g/dL (3.4-5.0); Alkaline Phosphatase 79 U/L (46-116); Anion Gap 7.4 mmol/L (3-11); BUN 22 mg/dL (7-18); Bilirubin, Total 0.6 mg/dL (0.2-1.0); CO2 30.6 mmol/L (21.0-32.0); CREATININE 1.3 mg/dL (0.70-1.30); Calcium 9.6 mg/dL (8.5-10.1); Calculated LDL 39 mg/dL (<100); Chloride 102 mmol/L (98-107); Cholesterol 127 mg/dL (<200); Estimated GFR 57.65 (mL/min/1.73m2); Glucose 112 mg/dL (74-106); HDL Cholesterol 48 mg/dL (40-60); Sodium 140 mmol/L (136-145); Total Protein 7.4 g/dL (6.4-8.2); Triglyceride 202 mg/dL (<150)
[2023-03-05 16:00] LABS: COMMENT (LAB VIEW ONLY) 258.22 mg/dL; Microalb ug/mg Crea 8.8 ug/mg Cr
--- OUTSIDE RECORDS SUMMARY | 2023-03-05 18:13 | XMS_ITS | Continuity of Care Document ---
Author Name Unknown Organization [facility] Address [address] [place] [address] Encounter [facility] FIN NBR [id number] Date(s): 07/24/22 - 07/25/22 [facility] [address], [place] [address] Encounter Diagnosis Chest pain(Discharge Diagnosis) - 07/24/22 Paresthesias(Discharge Diagnosis) - 07/25/22 Diabetes mellitus, type 2(Discharge Diagnosis) - 07/25/22 Hyperlipemia(Discharge Diagnosis) - 07/25/22 Hypothyroidism(Discharge Diagnosis) - 07/25/22 Hypertension(Discharge Diagnosis) - 07/25/22 Discharge Disposition: Home-No Follow Up Attending Physician: Fabina Gordon MD Admitting Physician: Jackie Gerber APRN Allergies, Adverse Reactions, Alerts No Known Medication Allergies Assessment and Plan Diagnostic Tests Pending * Hgb A1c 07/25/22 Functional Status 07/25/22 ADLs Minimal assistance 1 Personal Care Provided Gown change, Oral care, Other: pt independent. 07/25/22 Breakfast Percent 100 07/25/22 Living Environment No Living Environmen t Information Available Lives In Multilevel home Lives With Spouse Living Situation Home independently Home Barriers None 07/25/22 Other exposure to Infectious Disease Non e 1Result Comment: pt was set up. Medications Basaglar KwikPen 100 units/mL subcutaneous solution 20 units =, Subcutaneous, every night at bedtime, # 10 mL, 0 Refill(s) Start Date: 07/24/22 Status: Ordered Euthyrox 150 mcg (0.15 mg) oral tablet 0 Refill(s) Start Date: 07/24/22 Status: Ordered lisinopril 0 Refill(s) Start Date: 07/24/22 Status: Ordered metFORMIN 0 Refill(s) Start Date: 07/24/22 Status: Ordered metoprolol extended release 0 Refill(s) Start Date: 07/24/22 Status: Ordered simvastatin 0 Refill(s) Start Date: 07/24/22 Status: Ordered Mental Status 07/25/22 Eye Opening Response Hermelindo Spontaneous ly Best Verbal Response Hermelindo Oriented Best Motor Response Hermelindo Obeys comman ds [place] Coma Score 15 Problem List Condition Confirmation Course Effective Dates Status H ealth Status Informant Hyperlipemia Confirmed Active Hypertension Confirmed Active Hypothyroidism Confirmed Active Diabetes mellitus, type 2 Confirmed Active Results Laboratory List Name Date Glucose POCT 07/25/22 Glucose POCT 07/25/22 Basic Metabolic Panel (BMP) 07/25/22 CBC w/ Diff 07/25/22 TSH w/ Rflx to Free T4 07/25/22 Troponin-I 07/25/22 Vitamin B12 & Folate Level 07/25/22 Automated Diff 07/25/22 Glucose POCT 07/24/22 Glucose Level 07/24/22 SARS-CoV-2 (COVID-19) PCR (GeneXpert) CBC w/ Diff 07/24/22 Comprehensive Metabolic Panel 07/24/22 Lipase Level 07/24/22 Magnesium Level 07/24/22 Troponin-I 07/24/22 Lipase Level 07/24/22 Automated Diff 07/24/22 Most recent to oldest [Reference Range]: 1 2 3 WBC [4.8-10.8 K/mcL] 5.9 K/mcL (07/25/22 6:10 AM) 6.6 K/mcL (07/24/22 5:36 PM) RBC [4.20-6.10 Million/mcL] 4.25 Million /mcL (07/25/22 6:10 AM) 4.43 Million/mcL (07/24/22 5:36 PM) Neutro Auto [42.2-75.2 %] 62.0 % (07/25/22 6:10 AM) 49.9 % (07/24/22 5:36 PM) Lymph Auto [20.5-51.1 %] 23.8 % (07/25/22 6:10 AM) 34.7 % (07/24/22 5:36 PM) [place] Auto [1.7-9.3 %] 10.1 % *HI* (07/25/22 6:10 AM) 10.6 % *HI* (07/24/22 5:36 PM) Basophil Auto [0.0-0.2 %] 0.7 % *HI* (07/25/22 6:10 AM) 0.8 % *HI* (07/24/22 5:36 PM) BUN [8-26 mg/dL] 15 mg/dL (07/25/22 6:10 AM) 19 mg/dL (07/24/22 5:36 PM) Glucose POC [65-99 mg/dL] 117 mg/dL *HI* (07/25/22 12:04 PM) 109 mg/dL *HI* (07/25/22 7:30 AM) 166 mg/dL *HI* (07/24/22 10:39 PM) Whole Blood Glucose - Manual Entry [74-106 mmol/L] 166 mmol/L *HI* (07/24/22 9:03 PM) Glucose Level [74-106 mg/dL] 125 mg/dL *HI* (07/25/22 6:10 AM) 164 mg/dL *HI* (07/24/22 10:10 PM) 103 mg/dL (07/24/22 5:36 PM) Potassium Level [3.5-5.1 mmol/L] 4.4 mmol/L (07/25/22 6:10 AM) 4.4 mmol/L (07/24/22 5:36 PM) Baso Absolute [0.0-0.2 K/mcL] 0.0 K/mcL (07/25/22 6:10 AM) 0.0 K/mcL (07/24/22 5:36 PM) MCV [80.0-99.0 fL] 94.1 fL (07/25/22 6:10 AM) 95.7 fL (07/24/22 5:36 PM) AST [15-41 IntlUnit/L] 25 IntlUnit/L (07/24/22 5:36 PM) ALT [17-63 IntlUnit/L] 24 IntlUnit/L (07/24/22 5:36 PM) MCHC [32.0-36.0 g/dL] 34.0 g/dL (07/25/22 6:10 AM) 32.8 g/dL (07/24/22 5:36 PM) Osmolality [275-295 mOsm/kg] 272 mOsm/kg *LOW* (07/25/22 6:10 AM) 269 mOsm/kg *LOW* (07/24/22 5:36 PM) Troponin-I [0.01-0.50 ng/mL] <0.01 ng/mL (07/25/22 6:10 AM) 0.01 ng/mL (07/24/22 5:36 PM) Sodium Level [134-143 mmol/L] 135 mmol/L (07/25/22 6:10 AM) 133 mmol/L *LOW* (07/24/22 5:36 PM) Folate Level [>=5.9 ng/mL] 15.5 ng/mL (07/25/22 6:10 AM) Lymph Absolute [1.2-3.4 K/mcL] 1.4 K/mcL (07/25/22 6:10 AM) 2.3 K/mcL (07/24/22 5:36 PM) Hct [37.0-52.0 %] 40.0 % (07/25/22 6:10 AM) 42.4 % (07/24/22 5:36 PM) Lipase Level [18-51 unit/L] 37 unit/L (07/24/22 5:36 PM) 37 unit/L (07/24/22 5:33 PM) Calcium Level [8.9-10.3 mg/dL] 9.2 mg/dL (07/25/22 6:10 AM) 9.4 mg/dL (07/24/22 5:36 PM) [place] Absolute [0.1-0.6 K/mcL] 0.6 K/mcL (07/25/22 6:10 AM) 0.7 K/mcL *HI* (07/24/22 5:36 PM) Albumin Level [3.5-5.0 g/dL] 4.2 g/dL (07/24/22 5:36 PM) Protein Total [6.5-8.1 g/dL] 7.1 g/dL (07/24/22 5:36 PM) MCH [27.0-31.0 pg] 32.0 pg *HI* (07/25/22 6:10 AM) 31.4 pg *HI* (07/24/22 5:36 PM) Magnesium Level [1.8-2.5 mg/dL] 1.7 mg/dL *LOW* (07/24/22 5:36 PM) Neutro Absolute [1.4-6.5 K/mcL] 3.7 K/mcL (07/25/22 6:10 AM) 3.3 K/mcL (07/24/22 5:36 PM) Bilirubin Total [0.2-1.2 mg/dL] 0.8 mg/dL (07/24/22 5:36 PM) Hgb [12.0-18.0 g/dL] 13.6 g/dL (07/25/22 6:10 AM) 13.9 g/dL (07/24/22 5:36 PM) B12 Level [180-914 pg/mL] 322 pg/mL (07/25/22 6:10 AM) Alk Phos [38-130 IntlUnit/L] 60 IntlUnit /L (07/24/22 5:36 PM) MPV [7.4-10.4 fL] 10.0 fL (07/25/22 6:10 AM) 9.6 fL (07/24/22 5:36 PM) Platelets [130-400 K/mcL] 241 K/mcL (07/25/22 6:10 AM) 251 K/mcL (07/24/22 5:36 PM) CO2 [22-32 mmol/L] 29 mmol/L (07/25/22 6:10 AM) 29 mmol/L (07/24/22 5:36 PM) Eos Absolute [0.0-0.2 K/mcL] 0.2 K/mcL (07/25/22 6:10 AM) 0.2 K/mcL (07/24/22 5:36 PM) TSH [0.45-5.33 mIntlUnit/mL] 4.60 mIntlU nit/mL (07/25/22 6:10 AM) eGFR Non-AA [>=60] 87 (07/25/22 6:10 AM) 74 (07/24/22 5:36 PM) eGFR AA [>=60] 87 (07/25/22 6:10 AM) 74 (07/24/22 5:36 PM) Chloride Level [98-111 mmol/L] 98 mmol/L (07/25/22 6:10 AM) 96 mmol/L *LOW* (07/24/22 5:36 PM) RDW-CV [11.5-14.5 %] 12.4 % (07/25/22 6:10 AM) 12.4 % (07/24/22 5:36 PM) A/G Ratio 1.4 *NA* (07/24/22 5:36 PM) BUN/Creat Ratio [8.0-20.0] 16.1 (07/25/22 6:10 AM) 17.9 (07/24/22 5:36 PM) Globulin 2.9 *NA* (07/24/22 5:36 PM) Imm Gran Absolute 0.01 *NA* (07/25/22 6:10 AM) 0.01 *NA* (07/24/22 5:36 PM) Imm Gran Auto [0.0-0.5 %] 0.2 % (07/25/22 6:10 AM) 0.2 % (07/24/22 5:36 PM) SARS-CoV-2 (COVID-19) PCR (GeneXpert) [Negative] Negative (07/24/22 7:06 PM) Creatinine Level [0.61-1.24 mg/dL] 0.93 mg/dL (07/25/22 6:10 AM) 1.06 mg/dL (07/24/22 5:36 PM) Employed in healthcare? No *NA* (07/24/22 7:06 PM) Symptomatic as defined by CDC? No *NA* (07/24/22 7:06 PM) Hospitalized due to COVID-19? No *NA* (07/24/22 7:06 PM) In ICU? No *NA* (07/24/22 7:06 PM) Group care resident? No *NA* (07/24/22 7:06 PM) status? Not *NA* (07/24/22 7:06 PM) Anion Gap [3.0-12.0] 8.0 (07/25/22 6:10 AM) 8.0 (07/24/22 5:36 PM) Eos, Auto [0.00-3.00 %] 3.20 % *HI* (07/25/22 6:10 AM) 3.80 % *HI* (07/24/22 5:36 PM) Radiology Reports * Exam Date Time Procedure Performing Provider Status 07/24/22 7:[address] Angio Chest Maryanner, Efe; Auth (Verified) Notes: (CT Angio Chest) Reason For Exam: Chest pain CT Angio Chest PROCEDURE INFORMATION: Exam: CTA Chest With Contrast Exam date and time: 07/24/2022 6:53 PM Age: 71 years old Clinical indication: Pain; Other: Chest not not specified; Additional info: Chest pain TECHNIQUE: Imaging protocol: Computed tomographic angiography of the chest with contrast. 3D rendering (Not supervised by radiologist): MIP and/or 3D reconstructed images were created by the technologist. Radiation optimization: All CT scans at this facility use at least one of these dose optimization techniques: automated exposure control; mA and/or kV adjustment per patient size (includes targeted exams where dose is matched to clinical indication); or iterative reconstruction. Contrast material: ISOVUE 370; Contrast volume: 100 ml; Contrast route: INTRAVENOUS (IV); COMPARISON: No relevant prior studies available. FINDINGS: Pulmonary arteries: Normal. No pulmonary emboli. Aorta: Unremarkable. No aortic aneurysm. No aortic dissection. Lungs: Unremarkable. No consolidation. No masses. Pleural spaces: Unremarkable. No pneumothorax. No pleural effusion. Heart: Unremarkable. No cardiomegaly. No pericardial effusion. Lymph nodes: Unremarkable. No enlarged lymph nodes. Bones/joints: Unremarkable. No acute fracture. Soft tissues: Unremarkable. IMPRESSION: No acute findings. THIS DOCUMENT HAS BEEN ELECTRONICALLY SIGNED BY KWAN BURROWS MD on 07/24/2022 07:47 PM Final Signed by: Efe Strickland Signed (Electronic Signature): 07/24/2022 7:47 pm Vital Signs Most recent to oldest [Reference Range]: 1 2 3 Temperature Tympanic [36.6-37.9 Deg C] 36.1 Deg C *LOW* (07/24/22 4:50 PM) Temperature Temporal Artery [36-38 Deg C] 36.0 Deg C (07/25/22 11:59 AM) 36.0 Deg C (07/25/22 7:39 AM) 36.3 Deg C (07/25/22 1:25 AM) Peripheral Pulse Rate [60-100 bpm] 74 bpm (07/25/22 11:59 AM) 67 bpm (07/25/22 7:39 AM) 73 bpm (07/25/22 1:25 AM) Respiratory Rate [12-24 br/min] 18 br/min (07/25/22 11:59 AM) 18 br/min (07/25/22 7:39 AM) 16 br/min (07/25/22 1:25 AM) Blood Pressure [90-140/60-90 mmHg] 133/78mmHg (07/25/22 11:59 AM) 126/62mmHg (07/25/22 7:39 AM) 139/85mmHg (07/25/22 1:25 AM) Mean Arterial Pressure, Cuff [65-140 mmHg] 103 mmHg (07/25/22: AM) Blood Pressure Location Left arm (07/25/22: AM) Patient Position BP Supine (07/25/22 1:25 AM) Weight 100.500 kg (07/25/22 1:20 AM) Weight Dosing 100.500 kg (07/25/22 1:20 AM) 97.00 kg (07/24/22 6:11 PM) Weight Estimated 97.00 kg (07/24/22 4:50 PM) Height 175.000 cm (07/25/22 1:20 AM) Height/Length Dosing 175.000 cm (07/25/22 1:20 AM) 175.000 cm (07/24/22 6:11 PM) Body Mass Index 32.820 kg/m2 (07/25/22 1:20 AM) Height/Length Estimated 175.000 cm (07/24/22 4:50 PM) Social History Social History Type Response Tobacco Former tobacco user Tobacco Use:. Sex Hospital Discharge Instructions Patient Education 07/25/2022 12:42:25 Acute Pain, Adult Acute Pain, Adult Acute pain is a type of sudden pain that may last for just a few days or for as long as six months.It is often related to an illness, injury, or medical procedure. Acute pain may be mild, moderate, or severe. Pain can make it hard for you to do your normal, daily activities. It can cause anxiety and lead toother problems if it is left untreated. Treatment depends on the cause and severity of your pain. Acute pain usually goes away once your injury has healed or you are no longer ill. Follow these instructions at home: Medicines ??? Take mckr-ylv-ujqqjhg and prescription medicines only as told by your health care provider. ??? Take the lowest dose of medicine for the shortest amount of time needed to relieve the pain. ??? If you are taking prescription pain medicine: ??? Do not stop taking the medicine suddenly. Talk to your health care provider about how and when to discontinue prescription medicine. ??? Do not take more pills than told by your health care provider even if your pain is severe. ??? Do not take other prqe-ods-pgjrwdc pain medicines in addition to prescription pain medicine unless told by your health care provider. ??? Ask your health care provider if the medicine requires you to avoid driving or using heavy machinery. ??? Ask your health care provider if the medicine can cause constipation. You may need to take these actions to prevent or treat constipation: ??? Drink enough fluid to keep your urine pale yellow. ??? Eat foods that are high in fiber, such as beans, whole grains, and fresh fruits and vegetables. ??? Take kxdt-cya-ipxplin or prescription medicines. ??? Limit foods that are high in fat and processed sugars, such as fried or sweet foods. Managing pain, stiffness, and swelling If directed, put ice on the affected area. To do this: ??? Put ice in a plastic bag. ??? Place a towel between your skin and the bag. ??? Leave the ice on for 20 minutes, 2???3 times a day. If directed, apply heat to the affected area as often as told by your health care provider. Use theheat source that your health care provider recommends, such as a moist heat pack or a heating pad. ??? Place a towel between your skin and the heat source. ??? Leave the heat on for 20???30 minutes. ??? Remove the heat if your skin turns bright red. This is especially important if you are unable to feel pain, heat, or cold. You may have a greater risk of getting burned. Activity ??? Rest as told by your health care provider. ??? Return to your normal activities as told by your health care provider. Ask your health care provider what activities are safe for you. General instructions ??? Check your pain level as told by your health care provider. ??? Ask your health care provider if other strategies such as distraction, relaxation, or physical therapies can help your pain. ??? Keep all follow-up visits as told by your health care provider. This is important. Contact a health care provider if: ??? Your pain is not controlled by medicine. ??? Your pain does not improve or gets worse. ??? You have side effects from pain medicines, such as vomiting or confusion. Get help right away if you: ??? Have severe pain. ??? Have trouble breathing. ??? Lose consciousness. ??? Have chest pain or pressure that lasts for more than a few minutes, or if you have other symptoms along with chest pain, including if you: ??? Have pain or discomfort in one or both arms, your back, neck, jaw, or stomach. ??? Have shortness of breath. ??? Break out in a cold sweat. ??? Feel nauseous. ??? Become light-headed. These symptoms may represent a serious problem that is an emergency. Do not wait to see if the symptoms will go away. Get medical help right away. Call your local emergency services (911 in the [place] Do not drive yourself to the hospital. Summary ??? Acute pain may be mild, moderate, or severe. It usually goes away once your injury has healed or you are no longer ill. ??? Take ajxs-usn-nserlqf and prescription medicines only as told by your health care provider. ??? Ask your health care provider if the medicine prescribed to you can cause constipation. ??? Contact a health care provider if your pain is not controlled by medicine. This information is not intended to replace advice given to you by your health care provider. Make sure you discuss any questions you have with your health care provider. Document Revised: 02/23/2020 Document Reviewed: 02/23/2020 [employer] Patient Education ?? 2021 [employer] Follow Up Care 07/24/2022 16:50:43 With:Follow up with primary care provider Address:Unknown When:1 month CTA Chest vessels W contrast IV * DomainUser, Generated: VERIFY, VERIFY Event Display: Report PROCEDURE INFORMATION: Exam: CTA Chest With Contrast Exam date and time: 07/24/2022 6:53 PM Age: 71 years old Clinical indication: Pain; Other: Chest not not specified; Additional info: Chest pain TECHNIQUE: Imaging protocol: Computed tomographic angiography of the chest with contrast. 3D rendering (Not supervised by radiologist): MIP and/or 3D reconstructed images were created by the technologist. Radiation optimization: All CT scans at this facility use at least one of these dose optimization techniques: automated exposure control; mA and/or kV adjustment per patient size (includes targeted exams where dose is matched to clinical indication); or iterative reconstruction. Contrast material: ISOVUE 370; Contrast volume: 100 ml; Contrast route: INTRAVENOUS (IV); COMPARISON: No relevant prior studies available. FINDINGS: Pulmonary arteries: Normal. No pulmonary emboli. Aorta: Unremarkable. No aortic aneurysm. No aortic dissection. Lungs: Unremarkable. No consolidation. No masses. Pleural spaces: Unremarkable. No pneumothorax. No pleural effusion. Heart: Unremarkable. No cardiomegaly. No pericardial effusion. Lymph nodes: Unremarkable. No enlarged lymph nodes. Bones/joints: Unremarkable. No acute fracture. Soft tissues: Unremarkable.
== END 2023-03-05 18:07 | disposition home or self-care (01) ==
LOC: NCHCN 18:06
PROVIDERS: PCP Physician Assistant; Visit Provider Physician Assistant
DX: E03.9 Hypothyroidism, unspecified (principal); E11.9 Type 2 diabetes mellitus without complications; E78.5 Hyperlipidemia, unspecified
CPT/HCPCS: 80053; 80061; 82043; 82570; 83036; 84443

== ENCOUNTER 2024-03-05 09:34 | Outpatient (REF) | payer MEDICARE, BC, SELFPAY ==
[2024-03-05 16:28] LABS: Hemoglobin A1C 6.6 % (<5.7)
[2024-03-05 16:50] LABS: ALT 27 U/L (16-63); AST 16 U/L (15-37); Alkaline Phosphatase 69 U/L (46-116); Anion Gap 10.8 mmol/L (3-11); BUN 22 mg/dL (7-18); Bilirubin, Total 1.4 mg/dL (0.2-1.0); CO2 27.2 mmol/L (21.0-32.0); CREATININE 1.2 mg/dL (0.70-1.30); Calcium 9.5 mg/dL (8.5-10.1); Calculated LDL 37 mg/dL (<100); Chloride 102 mmol/L (98-107); Cholesterol 129 mg/dL (<200); Estimated GFR 63.07 (mL/min/1.73m2); Glucose 181 mg/dL (74-106); HDL Cholesterol 44 mg/dL (40-60); Potassium 4.6 mmol/L (3.5-5.1); Sodium 140 mmol/L (136-145); TSH 0.56 uIU/Ml (0.36-3.74); Total Protein 6.8 g/dL (6.4-8.2); Triglyceride 243 mg/dL (<150)
[2024-03-05 16:59] LABS: COMMENT (LAB VIEW ONLY) 111.86 mg/dL; Microalb ug/mg Crea 8.9 ug/mg Cr
== END 2024-03-05 09:35 | disposition home or self-care (01) ==
LOC: NCHCN 09:34
PROVIDERS: PCP Physician Assistant; Visit Provider Physician Assistant
DX: E03.9 Hypothyroidism, unspecified (principal); E11.9 Type 2 diabetes mellitus without complications
CPT/HCPCS: 80053; 80061; 82043; 82570; 83036; 84443

== ENCOUNTER 2024-05-28 08:28 | Observation (INO) | payer MEDICARE, BC, SELFPAY ==
[2024-05-28] VITALS (34 sets, daily range): BP systolic 105–139; BP diastolic 51–74; PULSE 78–103; RESP 16–23; TEMP 36.3–37.5; O2SAT 96–100
--- NOTE | 2024-05-28 08:30 | RT.EKG_ITS ---
APPROVED REPORT Exam: Resting ECG Reason for Exam: dizziness Patient Location: E HR:94 bpm ECG Measurements Heart Rate 94 AXIS VA 175 P 53 QRSd 83 QRS 30 QT 342 T 50 QTc 428 Conclusion Sinus rhythm...normal P axis, V-rate 60- 99 Physician: no stemi
--- NOTE | 2024-05-28 08:45 | DI.RAD_ITS ---
Exam(s) XR PORTABLE CHEST AP EXAM: XR PORTABLE CHEST AP CLINICAL HISTORY: cough, fever, eval for pneumonia. TECHNIQUE: 2D digital imaging was performed. COMPARISON: CR XR CHEST 2V PA LATERAL from 07/18/2019 FINDINGS: Single AP portable view. Heart size is upper normal. The mediastinum is not widened. Lungs are clear. No infiltrates nor obvious pleural effusions. IMPRESSION: No acute pulmonary findings on this single AP portable view of the chest. DATA REPOSITORY: RADIATION DOSE DELIVERED:
[2024-05-28 08:59] LABS: Lactate 1.7 mmol/L (0.6-1.4)
[2024-05-28 09:00] LABS: Abs Immature Grans 0.15 10^3/uL (0.0-0.06); Absolute Basophil Count 0.06 10^3/uL (0.0-0.2); Absolute Monocyte Count 1.58 10^3/uL (0.1-0.8); Basophils % 0.3 %; HCT 42.6 % (40.0-50.0); HGB 14.6 g/dL (13.5-17.5); Immature Grans % 0.7 %; MCH 31.6 pg (27.0-33.0); MCHC 34.3 % (32.0-36.0); MCV 92 fL (80-95); Monocytes % 7.9 %; Neutrophils % 88.1 %; Platelet Count 215 10^3/uL (130-400); RBC 4.62 10^6/uL (4.36-5.78); RDW 12.4 % (11.8-14.1); RDW-SD 42.5 fL; WBC 20.02 10^3/uL (4.4-10.8)
[2024-05-28] MEDS: Normal Saline 500 ML IV (09:00)
[2024-05-28] MEDS: Acetaminophen 500 MG TAB 1000 MG PO (09:02)
[2024-05-28 09:13] LABS: Absolute Neutrophil Count 17.64 10^3/uL (1.2-6.7)
[2024-05-28 09:14] LABS: Diff Comment Diff Reviewed; RBC Morphology Normal
--- NOTE | 2024-05-28 09:23 | W.ED.GENAD ---
Discharge Plan Disposition Patient Disposition: Admit to [facility] Condition: Improving Discharge Details Chief Complaint: Dizzy/Sync Clinical Impression: Severe sepsis, Urinary tract infection Admit Date/Time: 05/28/24 11:48 Admit Provider: Reid Rogers Attending Provider: Reid Rogers Primary Care Provider: Luis Mcclellan ED Provider: Anthony Melo Discharge Data Discharge Date/Time-TO BE ENTERED AT DEPARTURE: 05/28/24 11:41 HPI General Date/Time Provider Initiated Documentation: 05/28/24 08:40. HPI Narrative: 73-year-old male with a past medical history of high cholesterol, hypothyroidism, hypertension, type 2 diabetes on insulin, who has received his COVID and flu vaccines, presents today for not feeling well. Patient states that he woke up at around 3 AM, and he felt slightly dizzy, had some chills, and felt very hot. He went to the bathroom, he woke back up at around 3 AM and again had similar symptoms, felt slightly dizzy then 2. He then woke up again at 7 AM and felt more normal. He denies chest pain, shortness of breath, cough, dysuria, or acute urinary frequency. He does urinate relatively frequently but he states that this is his baseline. states that she had a mild sore throat yesterday. No other complaints at this time. No diarrhea. No vomiting. No other modifying factors. Related Data Home Medications ?Medication ?Instructions ?Recorded ?Confirmed Basaglar KwikPen U-100 Insulin 100 80 unit SQ DAILY 02/26/18 05/28/24 unit/mL (3 mL) subcutaneous (insulin glargine) aspirin 81 mg chewable tablet 81 mg PO DAILY 02/26/18 05/28/24 simvastatin 80 mg tablet 80 mg PO DAILY 02/26/18 05/28/24 multivitamin 1 ea PO DAILY 03/26/18 05/28/24 nitroglycerin 0.4 mg sublingual 0.4 mg sublingual Q5M PRN chest 07/19/19 05/28/24 tablet pain #30 tabs levothyroxine 150 mcg tablet 150 mcg PO DAILY 05/30/23 05/28/24 (Euthyrox) lisinopril 10 mg tablet 10 mg PO DAILY 05/30/23 05/28/24 metformin 1,000 mg tablet 1,000 mg PO .am 05/30/23 05/28/24 metformin 500 mg tablet,extended 500 mg PO QPM 05/30/23 05/28/24 release 24 hr metoprolol succinate 100 mg 100 mg PO DAILY 05/30/23 05/28/24 tablet,extended release 24 hr (Toprol XL) vitamin B complex (B-Complex 1 tab PO DAILY 05/28/24 05/28/24 tablet) Previous Rx's ?Medication ?Instructions ?Recorded nitroglycerin 0.4 mg sublingual 0.4 mg sublingual Q5M PRN chest 07/19/19 tablet pain #30 tabs Allergies Allergy/AdvReac Type Severity Reaction Status Date / Time No Known Allergies Allergy Unverified 05/28/24 09:53 General Stated Complaint: Dizzy/Sync SHARAD: 3 Review of Systems All systems reviewed & are unremarkable except as noted in HPI and below Exam Narrative Exam Narrative: 1.Const: Well-nourished, Well-developed, appearing stated age 2.Eyes: PERRL, no conjunctival injection, and symmetrical lids. 3.ENT: Atraumatic external nose and ears. Moist MM. Neck: Symmetric, trachea midline, No thyromegaly. 4.CVS: +S1/S2, No murmurs or gallops. Peripheral pulses 2+ and equal in all extremities. Brisk capillary refill in all extremities. 5.RESP: Unlabored respiratory effort. Clear to auscultation bilaterally. No wheezes rales or rhonchi 6.GI: Soft, Nontender/Nondistended, No hepatosplenomegaly. No guarding or rebound. 7.MSK: Normocephalic/Atraumatic, Extremities w/o deformity or ttp No cyanosis or clubbing, Normal movement of all extremities 8.Skin: Warm, Dry. No rashes or lesions. 9.Neuro: golf stud riveter II-XII grossly intact. Sensation grossly intact, no focal neurologic deficits. 10.Psych: (AAO) x3. Appropriate mood and affect Course Vital Signs Vital signs: Vital Signs Temperature 37.5 C 05/28/24 08:33 Pulse 93 H 05/28/24 08:33 Respiratory Rate 22 05/28/24 08:33 Blood Pressure 133/62 05/28/24 08:33 Pulse Oximetry 97 08/07/24 08:33 Temperature 37.4 C 05/28/24 09:02 Temperature Source Oral 05/28/24 08:48 Pulse 92 H 05/28/24 08:46 Pulse 92 H 05/28/24 08:50 Respiratory Rate 21 05/28/24 08:50 Blood Pressure 133/62 05/28/24 08:46 Blood Pressure Mean 82 05/28/24 08:46 Pulse Oximetry 97 05/28/24 08:50 Oxygen Delivery Method Room Air 05/28/24 08:33 Oxygen Flow Rate 0 05/28/24 08:33 Pain Level 3 05/28/24 09:02 Lab/Test Results Lab/Test Results: 05/28/24 08:49 Blood Blood Culture - Pending 05/28/24 08:49 Blood Blood Culture - Pending Laboratory Tests Range/Units 05/28/24 08:45 WBC (4.4-10.8) 10^3/uL 20.02 H RBC (4.36-5.78) 10^6/uL 4.62 Hgb (13.5-17.5) g/dL 14.6 Hct (40.0-50.0) % 42.6 MCV (80-95) fL 92 MCH (27.0-33.0) pg 31.6 MCHC (32.0-36.0) % 34.3 RDW (11.8-14.1) % 12.4 Plt Count (130-400) 10^3/uL 215 MPV (8.0-11.0) fL 10.0 Immature Gran % % 0.7 Neutrophils % % 88.1 Lymphocytes % % 3.0 Monocytes % % 7.9 Eosinophils % % 0.0 Basophils % % 0.3 Nucleated RBC % (0.0-0.3) % 0.0 Absolute Neutrophils (1.2-6.7) 10^3/uL 17.64 H Absolute Lymphocytes (1.2-3.4) 10^3/uL 0.60 L Absolute Monocytes (0.1-0.8) 10^3/uL 1.58 H Absolute Eosinophils (0.0-0.7) 10^3/uL 0.00 Absolute Basophils (0.0-0.2) 10^3/uL 0.06 RBC Morphology Normal VBG Lactate (0.6-1.4) mmol/L 1.7 H Medical Decision Making 73-year-old male with a past medical history of high cholesterol, hypothyroidism, hypertension, type 2 diabetes on insulin, who has received his COVID and flu vaccines, presents today for not feeling well. Patient states that he woke up at around 3 AM, and he felt slightly dizzy, had some chills, and felt very hot. He went to the bathroom, he woke back up at around 3 AM and again had similar symptoms, felt slightly dizzy then 2. He then woke up again at 7 AM and felt more normal. He denies chest pain, shortness of breath, cough, dysuria, or acute urinary frequency. He does urinate relatively frequently but he states that this is his baseline. states that she had a mild sore throat yesterday. No other complaints at this time. No diarrhea. No vomiting. No other modifying factors. Exam demonstrates a well-appearing male, no neck tightness or rigidity. Lung sounds are clear, abdomen is nontender, no calf tenderness. No other significant abnormalities. Concern for viral etiology, pneumonia or UTI on the differential as well. Will get blood cultures, gently rehydrate, monitor closely and reassess. No dizziness or nystagmus at this time. No signs of cerebellar stroke. No nuchal rigidity to suggest meningitis. 1 PM Laboratory workup shows an elevated white count of 20, notable left shift. No bandemia, lactate of 1.7, electrolytes normal and renal function good. TSH is high at 10, however free T4 is notably low at 0.5. Urinalysis does show evidence of moderate leuk esterase, 10-20 WBCs, many bacteria, few epithelial cells. COVID flu and RSV testing is negative. Patient appears mildly confused, I have reiterated things with him but he does not seem to recall, states that he usually gets like this when he has a urinary tract infection. He has been given 2 g of ceftriaxone. With his age, comorbidities, and risk factors he does meet sepsis criteria and with his fever vital signs and labs, I do feel that it is indicated for admission. Antibiotics have been given, he has been fluid resuscitated. Vital signs remained stable at this point. Discussed the case with hospitalist Dr. Rogers, he agrees with the assessment plan. I have extensively reviewed the treatment plan with the patient. I have addressed all patient concerns at this time. I have also discussed the plan with the admitting physician and they agree with the current assessment and plan and have agreed to assume responsibility for the patient. All parties demonstrate verbal understanding and agreement with our assessment and plan at this time. The documentation in this chart was dictated using [employer] dictation software. Please excuse any dictation errors. Quality:SDOH Health Related Social Needs: Health related social needs details none PFSH All Active Problems (Updated 05/28/24 @ 16:07 by Anthony Melo DO) Urinary tract infection (Acute) Urinary tract infection (Acute) Diabetes mellitus type 2, insulin dependent (Acute) Infectious encephalopathy (Acute) Severe sepsis (Acute) Hyperlipidemia (Acute) Skin lesion of right ear (Acute) Discharge planning issues (Acute) DVT prophylaxis (Acute) Hypothyroidism (Acute) Hypertension (Acute) Chest pain (Acute) Medical History (Updated 05/28/24 @ 16:07 by Anthony Melo DO) Hypogonadism in male 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 Fry Excision, Lesion (04/18/18) squamous cell cancer left dorsum of hand with skin graft from left thigh Family History Mother , Breast cancer at age 76. Breast cancer Father Throat cancer Heart disease Myocardial infarction Sister No problems noted. Social History Smoking/Tobacco Use Status: Former Tobacco Use Smoking risk assessment performed?: Yes Alcohol Intake: current Alcohol Intake frequency: holidays/special occasions only Drug use: Never Housing: house Do you feel safe at home: Yes Do you feel safe in your relationship?: Yes
[2024-05-28 09:32] LABS: Bilirubin Negative (Negative); Blood Negative (Negative); Clarity Cloudy (Clear); Glucose Negative (Negative); Ketones Trace mg/dL (Negative); Leukocyte Esterase Moderate (Negative); Nitrite Positive (Negative); Urobilinogen 0.2 mg/dL (Up to 0.2)
[2024-05-28 09:37] LABS: COVID-19 PCR Negative (Negative); Influenza A PCR Negative (Negative); Influenza B PCR Negative (Negative); RSV PCR Negative (Negative)
[2024-05-28 09:37] LABS: Procalcitonin 0.3 ng/mL
[2024-05-28 09:40] LABS: ALT 24 U/L (16-63); AST 20 U/L (15-37); Albumin 3.7 g/dL (3.4-5.0); Alkaline Phosphatase 66 U/L (46-116); Anion Gap 9.4 mmol/L (3-11); BUN 17 mg/dL (7-18); Bilirubin, Total 1.27 mg/dL (0.2-1.0); CO2 27.6 mmol/L (21.0-32.0); CREATININE 1.3 mg/dL (0.70-1.30); Calcium 9.2 mg/dL (8.5-10.1); Chloride 99 mmol/L (98-107); Estimated GFR 57.29 (mL/min/1.73m2); Glucose 148 mg/dL (74-106); Potassium 4.2 mmol/L (3.5-5.1); Sodium 136 mmol/L (136-145); TSH (W/Ref FT4) 10.24 uIU/mL (0.36-3.74); Total Protein 7.1 g/dL (6.4-8.2); Troponin I < 50 ng/L (< or =60)
[2024-05-28 09:41] LABS: Epithelial Cells Rare HPF (Negative); RBC 0-2 HPF (0-2)
[2024-05-28 09:42] LABS: Bacteria Many HPF (Negative); C & S Indicated? Yes; Casts Negative LPF (Negative); Crystals Negative HPF (Negative); Mucus Moderate (Negative)
[2024-05-28 09:49] LABS: Source Nasopharynx
[2024-05-28] MEDS: cefTRIAXone 2 GM/50 ML BAG IVPB (09:51)
[2024-05-28 10:14] LABS: FREE T4 0.59 ng/dL (0.76-1.46)
--- NOTE | 2024-05-28 11:19 | NUR.NOTE ---
snack tray provided Nursing Note:
--- NOTE | 2024-05-28 11:41 | W.PC.ACHO ---
Registration Status: Primary Language: Preferred Language: ED Information & Data Chief Complaint Dizzy/Sync 05/28/24 09:46 Chief Complaint Dizzy/Sync 05/28/24 09:26 Triage Note woke at 3am to go to the 05/28/24 08:33 bathroom. states he is constipated. felt hot but had chills. concerned for pneumonia. c/o headache. states blood sugars have been good (126 this morning) . feels dizzy. denies CP/SOB or recent falls. Medical / Surgical History (Last Reviewed 05/28/24 @ 09:25 by Anthony Melo DO) Hypogonadism in male Squamous cell cancer of skin of left hand (Last Reviewed 05/28/24 @ 09:25 by Anthony Melo DO) Repair of umbilical hernia Excision, Lesion (04/18/18) Most Recent Vital Signs Temperature 37.2 C 05/28/24 10:02 Temperature Source Temporal Artery Scan 05/28/24 09:45 Pulse 82 05/28/24 11:01 Pulse 83 05/28/24 11:10 Respiratory Rate 21 05/28/24 11:10 Respiratory Effort Normal, Non-Labored 05/28/24 09:46 Blood Pressure 122/64 05/28/24 11:01 Blood Pressure Mean 82 05/28/24 11:01 Pulse Oximetry 99 05/28/24 11:10 Oxygen Delivery Method Room Air 05/28/24 08:33 Oxygen Flow Rate 0 05/28/24 08:33 Pain Level 1 05/28/24 10:02 Allergies No Known Allergies Allergy (Unverified 05/28/24 09:53) IV IV Catheter Type [Right Saline Lock Antecubital] IV Catheter Gauge [Right 18 Antecubital] Diagnostics 05/28/24 05/28/24 05/28/24 Range/Units 11:49 09:23 08:55 WBC (4.4-10.8) 10^3/uL RBC (4.36-5.78) 10^6/uL Hgb (13.5-17.5) g/dL Hct (40.0-50.0) % MCV (80-95) fL MCH (27.0-33.0) pg MCHC (32.0-36.0) % RDW (11.8-14.1) % Plt Count (130-400) 10^3/uL MPV (8.0-11.0) fL Immature Gran % % Neutrophils % % Lymphocytes % % Monocytes % % Eosinophils % % Basophils % % Nucleated RBC % (0.0-0.3) % Absolute Neutrophils (1.2-6.7) 10^3/uL Absolute Lymphocytes (1.2-3.4) 10^3/uL Absolute Monocytes (0.1-0.8) 10^3/uL Absolute Eosinophils (0.0-0.7) 10^3/uL Absolute Basophils (0.0-0.2) 10^3/uL RBC Morphology VBG Lactate (0.6-1.4) mmol/L Sodium (136-145) mmol/L Potassium (3.5-5.1) mmol/L Chloride (98-107) mmol/L Carbon Dioxide (21.0-32.0) mmol/L Anion Gap (3-11) mmol/L BUN (7-18) mg/dL Creatinine (0.70-1.30) mg/dL Est GFR (CKD-EPI 2020) (mL/min/1.73m2) Glucose (74-106) mg/dL Calcium (8.5-10.1) mg/dL Total Bilirubin (0.2-1.0) mg/dL AST (15-37) U/L ALT (16-63) U/L Alkaline Phosphatase (46-116) U/L Troponin I Pending (< or =60) ng/L Total Protein (6.4-8.2) g/dL Albumin (3.4-5.0) g/dL Procalcitonin ng/mL TSH (0.36-3.74) uIU/mL Free T4 (0.76-1.46) ng/dL Urine Color Yellow (Yellow) Urine Clarity Cloudy (Clear) Urine pH 6.0 (5-8) Ur Specific [place] 1.020 (1.005-1.025) Urine Protein Trace (Neg-Trace) mg/dL Urine Ketones Trace H (Negative) mg/dL Urine Blood Negative (Negative) Urine Nitrite Positive H (Negative) Urine Bilirubin Negative (Negative) Urine Urobilinogen 0.2 (Up to 0.2) mg/dL Ur Leukocyte Esterase Moderate H (Negative) Urine RBC 0-2 (0-2) HPF Urine WBC 10-20 H (0-5) HPF Ur Epithelial Cells Rare (Negative) HPF Urine Crystals Negative (Negative) HPF Urine Bacteria Many (Negative) HPF Urine Casts Negative (Negative) LPF Urine Mucus Moderate (Negative) Ur Culture Indicated? Yes Urine Glucose Negative (Negative) mg/dL COVID-19 Source Nasopharynx SARS-CoV-2 (PCR) Negative (Negative) Influenza Type A (PCR) Negative (Negative) Influenza Type B (PCR) Negative (Negative) RSV (PCR) Negative (Negative) 05/28/24 Range/Units 08:45 WBC 20.02 H (4.4-10.8) 10^3/uL RBC 4.62 (4.36-5.78) 10^6/uL Hgb 14.6 (13.5-17.5) g/dL Hct 42.6 (40.0-50.0) % MCV 92 (80-95) fL MCH 31.6 (27.0-33.0) pg MCHC 34.3 (32.0-36.0) % RDW 12.4 (11.8-14.1) % Plt Count 215 (130-400) 10^3/uL MPV 10.0 (8.0-11.0) fL Immature Gran % 0.7 % Neutrophils % 88.1 % Lymphocytes % 3.0 % Monocytes % 7.9 % Eosinophils % 0.0 % Basophils % 0.3 % Nucleated RBC % 0.0 (0.0-0.3) % Absolute Neutrophils 17.64 H (1.2-6.7) 10^3/uL Absolute Lymphocytes 0.60 L (1.2-3.4) 10^3/uL Absolute Monocytes 1.58 H (0.1-0.8) 10^3/uL Absolute Eosinophils 0.00 (0.0-0.7) 10^3/uL Absolute Basophils 0.06 (0.0-0.2) 10^3/uL RBC Morphology Normal VBG Lactate 1.7 H (0.6-1.4) mmol/L Sodium 136 (136-145) mmol/L Potassium 4.2 (3.5-5.1) mmol/L Chloride 99 (98-107) mmol/L Carbon Dioxide 27.6 (21.0-32.0) mmol/L Anion Gap 9.4 (3-11) mmol/L BUN 17 (7-18) mg/dL Creatinine 1.3 (0.70-1.30) mg/dL Est GFR (CKD-EPI 2020) 57.29 (mL/min/1.73m2) Glucose 148 H (74-106) mg/dL Calcium 9.2 (8.5-10.1) mg/dL Total Bilirubin 1.27 H (0.2-1.0) mg/dL AST 20 (15-37) U/L ALT 24 (16-63) U/L Alkaline Phosphatase 66 (46-116) U/L Troponin I < 50 (< or =60) ng/L Total Protein 7.1 (6.4-8.2) g/dL Albumin 3.7 (3.4-5.0) g/dL Procalcitonin 0.3 ng/mL TSH 10.24 H (0.36-3.74) uIU/mL Free T4 0.59 L (0.76-1.46) ng/dL Urine Color (Yellow) Urine Clarity (Clear) Urine pH (5-8) Ur Specific [place] (1.005-1.025) Urine Protein (Neg-Trace) mg/dL Urine Ketones (Negative) mg/dL Urine Blood (Negative) Urine Nitrite (Negative) Urine Bilirubin (Negative) Urine Urobilinogen (Up to 0.2) mg/dL Ur Leukocyte Esterase (Negative) Urine RBC (0-2) HPF Urine WBC (0-5) HPF Ur Epithelial Cells (Negative) HPF Urine Crystals (Negative) HPF Urine Bacteria (Negative) HPF Urine Casts (Negative) LPF Urine Mucus (Negative) Ur Culture Indicated? Urine Glucose (Negative) mg/dL COVID-19 Source SARS-CoV-2 (PCR) (Negative) Influenza Type A (PCR) (Negative) Influenza Type B (PCR) (Negative) RSV (PCR) (Negative) 05/28/24 09:35 Blood Culture - Pending Blood 05/28/24 09:15 Blood Culture - Pending Blood 05/28/24 09:23 Urine Culture - Pending Urine - Reflex from Ua Intake and Output - 24 Hour Total 05/28/24 08:28 thru 05/28/24 10:25 Intake Total 560 Balance 560 Weight 95.708 kg Intake: IV 560 Falls Risk Assessment History of Falls No History 05/28/24 09:39 Contributing Factors Unstable 05/28/24 09:39 Ambulatory Aids Independent 05/28/24 09:39 Gait Evaluation No gait disturbance 05/28/24 09:39 Cognition No cognitive impairment 05/28/24 09:39 Fall Total Score 3 05/28/24 09:39 Level of Risk Standard/Low Risk 05/28/24 09:39 Notes 05/28/24 11:19 Nursing Notes by Zahra Elaine provided Nursing Note: Initialized on 05/28/24 11:19 - END OF NOTE v v v v v v v v v Sending and/or Receiving Nurses: Please use comment section below to note any information pertinent to the patient hand-off not included above. Information / Comments: A&Ox4, SBA when ambulating, pain 10/31, afebrile at this time Report received from:Milly/ER
--- OUTSIDE RECORDS SUMMARY | 2024-05-28 11:51 | XMS_ITS | Clinical Summary ---
Author Organization [facility] [place] [address] Care Team Providers Care Leasing Sales Consultant Name Role Phone Emiliano Nuñez MD Primary Care Provider [phone]- [phone] Social History Tobacco Use Types Packs/Day Years Used Date Smoking Tobacco: Never Assessed Sex and Gender Information Value Date Recorded Sex Assigned at Not on file Gender Identity Not on file Sexual Orientation Not on file Plan of Treatment Health Maintenance Due Date Last Done Comments CT Colonography 1948 Colonoscopy 1948 Colorectal Cancer Screening 1948 FIT DNA 1948 FIT 1948 Sigmoidoscopy (10 year) with FIT yearly 1948 Sigmoidoscopy 1948 Hepatitis C Screening 1966 Lipid Screening 1966 Tdap adult 1967 Tetanus vaccine 1967 Zoster vaccine (1 of 2) 1998 Advance Directive 2003 Pneumoccocal Vaccine: 65+ (1 of 1 - PCV) 2013 Covid-19 Vaccine (1 - 2022- season) 2023 Influenza (Flu) vaccine (1 o f 1 - Influenza standard series) 06/22/2024 Care Teams Leasing Sales Consultant Relationship Specialty Start Date End Date Emiliano Nuñez MD [address] [place] [phone] PCP - General 09/13/10
--- OUTSIDE RECORDS SUMMARY | 2024-05-28 11:51 | XMS_ITS | Encounter Summary ---
Author Organization [facility] [place] [address] Care Team Providers Care Child Life Assistant Name Role Phone Emiliano Nuñez MD Primary Care Provider [phone]- [phone] Encounter Details Date Type Department Care Team (Late st Contact Info) Description 07/18/2019 [place] [phone] Social History Tobacco Use Types Packs/Day Years Used Date Smoking Tobacco: Never Assessed Sex and Gender Information Value Date Recorded Sex Assigned at Not on file Gender Identity Not on file Sexual Orientation Not on file documented as of this encounter Plan of Treatment Not on file documented as of this encounter Procedures Procedure Name Priority Date/Time Associated Diagnosis Comments ECG SCAN Routine 07/18/2019 documented in this encounter Results * Scan Doc: ECG (07/18/2019) Historical Provider MD GAINES MGR SCAN EX T ORDR/RSLT documented in this encounter Visit Diagnoses Not on filedocumented in this encounter Care Teams Child Life Assistant Relationship Specialty Start Date End Date Emiliano Nuñez MD [address] [place] [phone] PCP - General 09/13/10 documented as of this encounter
--- OUTSIDE RECORDS SUMMARY | 2024-05-28 11:51 | XMS_ITS | Encounter Summary ---
Author Organization [facility] [place] [address] Care Team Providers Care Hatchery Manager Name Role Phone Emiliano Nuñez MD Primary Care Provider [phone]- [phone] Encounter Details Date Type Department Care Team (Late st Contact Info) Description 07/18/2019 Telephone Intermediate [place] [phone] Lise Floyd APRN [facility] [address] Social History Tobacco Use Types Packs/Day Years Used Date Smoking Tobacco: Never Assessed Sex and Gender Information Value Date Recorded Sex Assigned at Not on file Gender Identity Not on file Sexual Orientation Not on file documented as of this encounter Miscellaneous Notes * Telephone Encounter - Lise Floyd APRN - 07/18/2019 4:40 PM EDT 07/18/2019 Mika Skinner Jr. Initial Contact Date: 07/18/2019 Initial contact time: 4:40 PM Referring Provider: Dr. Quintana Patient Location: [facility] Brief History 68 y.o. male with past medical history of DM, HTN, came in with chest pain relieved with nitroglycerin. Trops negative x 2. ECG reported to have non- specific changes, on review patient appears to be in ST to 130 bpm with minimal RIZWANA <1mm in lead II, V5, v6 on ECG #3. Currently chest pain free and just admitted to the hospitalist service for further risk stratification who did not request this phone call (we were initially called from the ED with req for transfer). Hospitalist to call back pending overnight course if escalating concern for UA and need for cath or change in status. Planning to trend serial troponins and ECGs. They do not have stress testing or echo available until Sunday. We discussed medical management for UA including ASA, heparin and nitro and recommended they call back with any symptom or ECG changes. Patient currently CP free Anticipate follow up phone call pending overnight course. Plan: - above recommendations were based on my discussion with ; I have not personally interviewed or examined this patient. I encouraged Dr. Quintana to contact us if there is any change in symptoms, decision-making, or further need for guidance in management. Lise Floyd APRN Cardiovascular Medicine Pager [phone] 07/18/2019 . documented in this encounter Plan of Treatment Not on file documented as of this encounter Visit Diagnoses Not on filedocumented in this encounter Care Teams Hatchery Manager Relationship Specialty Start Date End Date Emiliano Nuñez MD [address] [place] [phone] PCP - General 09/13/10 documented as of this encounter
[2024-05-28 14:01] LABS: Troponin I < 50 ng/L (< or =60)
--- NOTE | 2024-05-28 14:13 | W.PM.HP.N ---
Date of service: 05/28/24 Time of Service: 14:13 Assessment and Plan Assessment and plan (1) Severe sepsis: Status: Acute Assessment and plan: without septic shock, source urinary urine and blood cultures pending continue ceftriaxone day 1 while cultures pending (2) Urinary tract infection: Status: Acute Assessment and plan: see above. Postvoid bladder scan shows no evidence of urinary retention Consider imaging (3) Infectious encephalopathy: Status: Acute Assessment and plan: Thought due to severe sepsis with urinary tract infection but resolved at time of admission fall/safety precautions (4) Diabetes mellitus type 2, insulin dependent: Status: Acute Assessment and plan: diabetic diet blood sugar check twice daily with home regimen for coverage Continue twice daily home basal insulin patient driven (5) Hypertension: Status: Acute Assessment and plan: monitor blood pressure continue home meds, metoprolol succinate 100 mg and lisinopril 10 mg daily (6) Hypothyroidism: Status: Acute Assessment and plan: TSH 10.24 continue levothyroxine (7) Hyperlipidemia: Status: Acute Assessment and plan: continue statin discussed Dr Rogers History of Present Illness Narrative: This is a 73-year-old male patient past medical history significant for diabetes mellitus type 2 hypothyroidism hypertension dyslipidemia presents to the emergency department with generalized complaints of malaise dizziness chills. Workup in the emergency department most consistent with sepsis, severe. He was started on broad spectrum antibiotics and will be admitted to hospitalist services while cultures are pending. He did not experience any chest pain abdominal pain nausea vomiting diarrhea. Review of Systems All systems reviewed & are unremarkable except as noted in HPI and below PFSH All Active Problems (Updated 05/28/24 @ 16:07 by Anthony Melo DO) Urinary tract infection (Acute) Urinary tract infection (Acute) Diabetes mellitus type 2, insulin dependent (Acute) Infectious encephalopathy (Acute) Severe sepsis (Acute) Hyperlipidemia (Acute) Skin lesion of right ear (Acute) Discharge planning issues (Acute) DVT prophylaxis (Acute) Hypothyroidism (Acute) Hypertension (Acute) Chest pain (Acute) Medical History (Updated 05/28/24 @ 16:07 by Anthony Melo DO) Hypogonadism in male 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 Fry Excision, Lesion (04/18/18) squamous cell cancer left dorsum of hand with skin graft from left thigh Family History Mother , Breast cancer at age 76. Breast cancer Father Throat cancer Heart disease Myocardial infarction Sister No problems noted. Social History Smoking/Tobacco Use Status: Former Tobacco Use Smoking risk assessment performed?: Yes Alcohol Intake: current Alcohol Intake frequency: holidays/special occasions only Drug use: Never Housing: house Do you feel safe at home: Yes Do you feel safe in your relationship?: Yes Meds Allergies and Home Medications Allergies Allergy/AdvReac Type Severity Reaction Status Date / Time No Known Allergies Allergy Unverified 05/28/24 09:53 Home Medications ?Medication ?Instructions ?Recorded ?Confirmed ?Type Trevor Christensen U-100 Insulin 100 80 unit SQ DAILY 02/26/18 05/28/24 History unit/mL (3 mL) subcutaneous (insulin glargine) aspirin 81 mg chewable tablet 81 mg PO DAILY 02/26/18 05/28/24 History simvastatin 80 mg tablet 80 mg PO DAILY 02/26/18 05/28/24 History multivitamin 1 ea PO DAILY 03/26/18 05/28/24 History nitroglycerin 0.4 mg sublingual 0.4 mg sublingual Q5M PRN chest 07/19/19 05/28/24 Rx tablet pain #30 tabs levothyroxine 150 mcg tablet 150 mcg PO DAILY 05/30/23 05/28/24 History (Euthyrox) lisinopril 10 mg tablet 10 mg PO DAILY 05/30/23 05/28/24 History metformin 1,000 mg tablet 1,000 mg PO .am 05/30/23 05/28/24 History metformin 500 mg tablet,extended 500 mg PO QPM 05/30/23 05/28/24 History release 24 hr metoprolol succinate 100 mg 100 mg PO DAILY 05/30/23 05/28/24 History tablet,extended release 24 hr (Toprol XL) vitamin B complex (B-Complex 1 tab PO DAILY 05/28/24 05/28/24 History tablet) Exam Narrative Exam Narrative: Well-appearing male younger than stated age in no acute distress neurologic he is awake alert oriented no focal deficits skin is pink warm dry well-perfused normal facial features eyes nonicteric noninjected neck with full range of motion no JVD cardiovascular regular rate and rhythm respirations even and unlabored abdomen benign extremities are without edema moves all extremities psychiatric normal mood and affect Results Labs 05/28/24 08:45 05/28/24 08:45 Labs: Laboratory Results - last 24 hr 05/28/24 05/28/24 05/28/24 08:45 08:55 09:23 WBC 20.02 H RBC 4.62 Hgb 14.6 Hct 42.6 MCV 92 MCH 31.6 MCHC 34.3 RDW 12.4 Plt Count 215 MPV 10.0 Immature Gran % 0.7 Neutrophils % 88.1 Lymphocytes % 3.0 Monocytes % 7.9 Eosinophils % 0.0 Basophils % 0.3 Nucleated RBC % 0.0 Absolute Neutrophils 17.64 H Absolute Lymphocytes 0.60 L Absolute Monocytes 1.58 H Absolute Eosinophils 0.00 Absolute Basophils 0.06 RBC Morphology Normal VBG Lactate 1.7 H Sodium 136 Potassium 4.2 Chloride 99 Carbon Dioxide 27.6 Anion Gap 9.4 BUN 17 Creatinine 1.3 Est GFR (CKD-EPI 2020) 57.29 Glucose 148 H Calcium 9.2 Total Bilirubin 1.27 H AST 20 ALT 24 Alkaline Phosphatase 66 Troponin I < 50 Total Protein 7.1 Albumin 3.7 Procalcitonin 0.3 TSH 10.24 H Free T4 0.59 L Urine Color Yellow Urine Clarity Cloudy Urine pH 6.0 Ur Specific [place] 1.020 Urine Protein Trace Urine Ketones Trace H Urine Blood Negative Urine Nitrite Positive H Urine Bilirubin Negative Urine Urobilinogen 0.2 Ur Leukocyte Esterase Moderate H Urine RBC 0-2 Urine WBC 10-20 H Ur Epithelial Cells Rare Urine Crystals Negative Urine Bacteria Many Urine Casts Negative Urine Mucus Moderate Ur Culture Indicated? Yes Urine Glucose Negative COVID-19 Source Nasopharynx SARS-CoV-2 (PCR) Negative Influenza Type A (PCR) Negative Influenza Type B (PCR) Negative RSV (PCR) Negative 05/28/24 12:52 WBC RBC Hgb Hct MCV MCH MCHC RDW Plt Count MPV Immature Gran % Neutrophils % Lymphocytes % Monocytes % Eosinophils % Basophils % Nucleated RBC % Absolute Neutrophils Absolute Lymphocytes Absolute Monocytes Absolute Eosinophils Absolute Basophils RBC Morphology VBG Lactate Sodium Potassium Chloride Carbon Dioxide Anion Gap BUN Creatinine Est GFR (CKD-EPI 2020) Glucose Calcium Total Bilirubin AST ALT Alkaline Phosphatase Troponin I < 50 Total Protein Albumin Procalcitonin TSH Free T4 Urine Color Urine Clarity Urine pH Ur Specific [place] Urine Protein Urine Ketones Urine Blood Urine Nitrite Urine Bilirubin Urine Urobilinogen Ur Leukocyte Esterase Urine RBC Urine WBC Ur Epithelial Cells Urine Crystals Urine Bacteria Urine Casts Urine Mucus Ur Culture Indicated? Urine Glucose COVID-19 Source SARS-CoV-2 (PCR) Influenza Type A (PCR) Influenza Type B (PCR) RSV (PCR) Last Vital Signs Temp 36.3 C L 05/28/24 12:25 Pulse 83 05/28/24 12:25 Resp 20 05/28/24 12:25 BP 118/74 05/28/24 12:25 Pulse Ox 96 05/28/24 12:25 Time Spent Time spent with Patient: 55-74 minutes Time was spent: preparing to see the patient(eg.review tests), obtaining and/or reviewing separately otained hiistory, ordering medications,tests, procedures, referring, communicating with other health hospice home care coordinator (med rec with pcp, some meds filled in [place] (lisinopril and simvastatin), indepentently interpreting results and counseling the patient
[2024-05-28] MEDS: Levothyroxine 150 MCG TAB PO (14:33)
[2024-05-28] MEDS: Metoprolol CR 100 MG TABCR PO (14:33)
--- NOTE | 2024-05-28 15:32 | PHA.REVIEW2 ---
Pharmacy Admission Review Admission Clinical Review Admission Pharmacy Review: Urinary tract infection (Acute) Diabetes mellitus type 2, insulin dependent (Acute) Infectious encephalopathy (Acute) Severe sepsis (Acute) Hyperlipidemia (Acute) Hypothyroidism (Acute) Hypertension (Acute) No Known Allergies Allergy (Unverified 05/28/24 09:53) Resuscitation Status Full Code Height 5 ft 9 in Weight 95.708 kg Pharmacy Admission Review Renal Dosing Renal Dosing: BUN 17 mg/dL (7-18) 05/28/24 08:45 Creatinine 1.3 mg/dL (0.70-1.30) 05/28/24 08:45 Medications needing adjustments: Reviewed (CrCl 56.04 mL/min) List of meds needing interventions: Current medications are okay Anticoagulation Anticoagulation: Hgb 14.6 g/dL (13.5-17.5) 05/28/24 08:45 Hct 42.6 % (40.0-50.0) 05/28/24 08:45 Plt Count 215 10^3/uL (130-400) 05/28/24 08:45 Creatinine 1.3 mg/dL (0.70-1.30) 05/28/24 08:45 DVT Prophylaxis: Reviewed Medications: Enoxaparin (40mg daily) Relevant Labs Relevant Labs: Sodium 136 mmol/L (136-145) 05/28/24 08:45 Potassium 4.2 mmol/L (3.5-5.1) 05/28/24 08:45 Chloride 99 mmol/L (98-107) 05/28/24 08:45 Electrolytes, C-Reactive P, ESR: Reviewed DM Control DM Control: Glucose 148 mg/dL (74-106) H 05/28/24 08:45 Finger Stick Blood Glucose 141 1158 Finger Stick Blood Glucose 141 1158 DM Control: Reviewed Insulin Dosing, Diabetic Medication: Per provider, patient is bringing in home insulin. I will put in order as patients own insulin 40-60 units BID@0700,1900 dose based per patients protocol (patient will be able to determine dose that is needed per provider). Cardiac Review Cardiac Review: Troponin I < 50 ng/L (< or =60) 05/28/24 12:52 BP, HR, EF%: Reviewed (BP and HR WNL) QTc Review QTc: Reviewed (EKG report pending) IV to PO Switch IV Medications: Reviewed (ceftriaxone) Home Meds Home Med List reviewed: Intervened Relevent Home Meds Not ordered & why?: metformin, multivitamin, B complex Nursing confirmed with patients pharmacy in [place] that they do take lisinopril and simvastatin (fill history shows hasn't filled since 09/13 - but that's because they last filled in [place]). Orders were put in per provider. Had testosterone patch listed as active. Called nursing to check if patient had one on. Per nursing, patient does not have one on and has not been using them. Took off home med list Current Meds Current Medication Order Review: Reviewed Pharmacy Antibiotic Review Relevant Labs: Relevant Labs 05/28/24 08:45 Procalcitonin 0.3 WBC 20.02 10^3/uL (4.4-10.8) H 05/28/24 08:45 Procalcitonin 0.3 ng/mL 05/28/24 08:45 Temperature 36.7 C Temperature 36.3 C Temperature 36.9 C Temperature 37.2 C Temperature 37.2 C Temperature 37.4 C Temperature 36.8 C Temperature 37.5 C Pharmacy Antibiotic Activity: C/S review and Reviewed, no change Comments: Patient is on ceftriaxone, day 1, for UTI. Blood/urine cultures pending.
[2024-05-28] MEDS: Simvastatin 40 MG TAB 80 MG PO (19:45)
[2024-05-28] MEDS: Normal Saline Flush 10 ML SYR IVP (19:46)
[2024-05-28] MEDS: Acetaminophen 325 MG TAB PO (19:53)
--- NOTE | 2024-05-29 | DI.US_ITS ---
Exam(s) US RENAL EXAM: US RENAL CLINICAL HISTORY: UTI in male. TECHNIQUE: Gunderson scale, color and spectral Doppler were used. COMPARISON: No exams were available for comparison FINDINGS: Right kidney: 11.4cm Echogenicity: Normal Hydronephrosis: No Cyst or mass: No Nephrolithiasis: No Left kidney: 10.9cm Echogenicity: Normal Hydronephrosis: No Cyst or mass: No Nephrolithiasis: No Bladder:Normal. Both ureteral jets visualized. Prevoid vol:564 cc Postvoid vol:132 cc Prostate volume 25 cc. IMPRESSION: Elevated postvoid bladder residual. Borderline prostate enlargement. Normal appearing kidneys. DATA REPOSITORY:
[2024-05-29 03:35] VITALS: BP 130/71; PULSE 77; RESP 18; TEMP 36.9; O2SAT 97
[2024-05-29 07:15] VITALS: BP 118/71; PULSE 78; RESP 17; TEMP 37; O2SAT 97
[2024-05-29] MEDS: Normal Saline Flush 10 ML SYR IVP ×3 (08:35→20:05)
[2024-05-29] MEDS: Lisinopril 10 MG TAB PO (08:35)
[2024-05-29] MEDS: Aspirin 81 MG CHEW PO (08:35)
[2024-05-29 09:08] LABS: Anion Gap 6.3 mmol/L (3-11); BUN 17 mg/dL (7-18); CO2 30.7 mmol/L (21.0-32.0); CREATININE 1.3 mg/dL (0.70-1.30); Calcium 9.3 mg/dL (8.5-10.1); Chloride 97 mmol/L (98-107); Estimated GFR 57.29 (mL/min/1.73m2); Glucose 139 mg/dL (74-106); Magnesium 1.4 mg/dL (1.8-2.4); Potassium 4.4 mmol/L (3.5-5.1); Sodium 134 mmol/L (136-145)
[2024-05-29 09:38] LABS: HGB 14.2 g/dL (13.5-17.5); RBC 4.52 10^6/uL (4.36-5.78); WBC 21.02 10^3/uL (4.4-10.8)
[2024-05-29 09:39] LABS: HCT 41.9 % (40.0-50.0); MCH 31.4 pg (27.0-33.0); MCHC 33.9 % (32.0-36.0); MCV 93 fL (80-95); Platelet Count 236 10^3/uL (130-400); RDW-SD 44.3 fL
[2024-05-29] MEDS: Acetaminophen 325 MG TAB PO ×2 (10:00→16:41)
--- NOTE | 2024-05-29 10:50 | PGE_ITS ---
Date of Service Date of service: 05/29/24 Time of Service: 10:51 Assessment and Plan Assessment and plan (1) Severe sepsis: Status: Acute Assessment and plan: without septic shock, source urinary WBC at 21 from 20 - stable Blood cultures negative at 24 hours urine culture still pending at 12:26 today continue ceftriaxone day 2 while cultures pending, narrow antibiotic as soon as results available from micro Might transition to oral at home (2) Urinary tract infection: Status: Acute Assessment and plan: see above. Postvoid bladder scan shows no evidence of urinary retention Renal US renal; no postvoid residual; Cr 1.8 baseline (3) Infectious encephalopathy: Status: Acute Assessment and plan: Now resolved Most likely to be due to severe sepsis with urinary source for infection but resolved at time of admission fall/safety precautions no longer necessary now (4) Diabetes mellitus type 2, insulin dependent: Status: Acute Assessment and plan: Continue diabetic diet On fingersticks twice daily with home regimen for coverage Continue twice daily home basal insulin patient driven (5) Hypertension: Status: Acute Assessment and plan: monitor blood pressure On home dose metoprolol succinate 100 mg and lisinopril 10 mg daily (6) Hypothyroidism: Status: Acute Assessment and plan: TSH 10.24 On home dose levothyroxine; f/u by PCP (7) Hyperlipidemia: Status: Acute Assessment and plan: On home dose statin (8) On deep vein thrombosis (DVT) prophylaxis: Status: Acute Assessment and plan: ON LMWH (9) Discharge planning issues: Status: Acute Assessment and plan: Home w/o services when medically clear Might need oral antibiotic pending microbiology results discussed Dr Rogers Subjective Subjective Patient reports: no new complaints, feels better, tolerating liquids well, tolerating a regular diet, voiding w/o difficulty (urgency ), flatus and bowel movement; denies diarrhea, nausea, vomiting, shortness of breath or fever Exam Narrative Exam Narrative: Constitutional The patient is in bed comfortable without acute distress Neuro:alert and oriented X 4 Resp: Clear lung bilaterally Cardio: regular rhythm, S1, S2, no murmur, positive pulses to all 4 ext. GI: Abdomen is not distended, soft and non tender, bowel sounds are present : Negative Costovertebral angle tenderness Back/spine/Pelvis: No back tenderness, normal alignment Integumentary: No skin lesions or rash Extremities: strength 5/5 to bilateral lower and upper extremities Psych: RASS 0, congruent mood and normal affect. Objective Last Vital Signs Temp 37.0 C 05/29/24 07:15 Pulse 78 05/29/24 07:15 Resp 17 05/29/24 07:15 BP 118/71 05/29/24 07:15 Pulse Ox 97 05/29/24 07:15 Laboratory Results - last 24 hr 05/28/24 05/29/24 12:52 06:22 WBC 21.02 H RBC 4.52 Hgb 14.2 Hct 41.9 MCV 93 MCH 31.4 MCHC 33.9 RDW 13.0 Plt Count 236 MPV 10.0 Sodium 134 L Potassium 4.4 Chloride 97 L Carbon Dioxide 30.7 Anion Gap 6.3 BUN 17 Creatinine 1.3 Est GFR (CKD-EPI 2020) 57.29 Glucose 139 H Calcium 9.3 Magnesium 1.4 L Troponin I < 50 Time Spent with Patient Time Spent with Patient: >50 minutes Time was spent: preparing to see the patient(eg.review tests), obtaining and/or reviewing separately otained hiistory, ordering medications,tests, procedures, referring, communicating with other health interior plant caretaker, indepentently interpreting results, counseling the patient and care coordination
[2024-05-29 10:54] VITALS: BP 114/68; PULSE 78; RESP 17; TEMP 37.4; O2SAT 98
[2024-05-29] MEDS: cefTRIAXone 1 GM/50 ML BAG IVPB (11:04)
--- NOTE | 2024-05-29 11:12 | INITIAL_ITS ---
Date of service: 05/29/24 Time of Service: 11:12 Care Management Initial Assmt Initial Assessment Reason for Hospitalization: sepsis, uti Functional Status/Living Situation Patient Presentation: ILENE was sitting up in bed, fully dressed, visiting with his Danitza when CM met with him. He was pleasant in interaction and engaged well with CM. ILENE stated that he is feeling great. He initially presented to the ED because of weakness, dizziness and chills and was felt to have a UTI. His urine culture is growing gram negative rods but his blood cultures are negative so far. ILENE remai ns afebrile and his vital signs are stable although his WBC remains elevated at 21.02. Town of Residence: [place] in a single family home with Danitza Resides with: Spouse (Danitza) Significant Other/Family: Out of area (daughter and 2 grandchildren live in [place]) Employment Status: Retired (worked in the [employer] business) Instrumental Activities of Daily Living (ADLs): Independent Activities/Hobbies/SocialSupport: golfs and walks for enjoyment and exercise Medications Medication Management: No Issues/Barriers identified Physical Functioning/Mobility Assistive Device: none Advance Directives Advance Directives: Do you have an Advance Directive: N 09/15/19 13:16 AD On File at [facility]: N 05/20/13 16:38 Date Asked 05/28/24 05/28/24 08:46 AD Date Reviewed COLST On File at [facility] No 03/05/23 18:11 COLST Date Scanned Comment: states he has ADs Code Status Resuscitation Status Full Code Portal Pt does not currently have a portal and education provided: No Insurance Coverage/Financial Issues Insurance: Medicare / Care Team Visit Care Team Role Provider Type Luis Mcclellan Primary Care Provider NON-[facility] STAFF PHYSICIAN Anthony Melo DO Emergency Provider [facility] STAFF PHYSICIAN Reid Rogers MD Admit Provider [facility] STAFF PHYSICIAN Attending Provider Discharge Potential Discharge Needs: PCP F/U Appt Anticipated Barriers to Discharge: None Identified Patient/Family Education Needs: Review discharge instructions, discuss Ask Me Three Transportation: Private vehicle Plan: Anticipate ILENE will be discharged home with no new services when medically stable. He will follow up with his PCP and plan of care and transport with his . CM will follow and continue to support discharge planning needs. PFSH All Active Problems (Updated 05/29/24 @ 10:59 by Anabella Tamez APRN) On deep vein thrombosis (DVT) prophylaxis (Acute) Urinary tract infection (Acute) Urinary tract infection (Acute) Diabetes mellitus type 2, insulin dependent (Acute) Infectious encephalopathy (Acute) Severe sepsis (Acute) Hyperlipidemia (Acute) Skin lesion of right ear (Acute) Discharge planning issues (Acute) DVT prophylaxis (Acute) Hypothyroidism (Acute) Hypertension (Acute) Chest pain (Acute) Medical History (Updated 05/29/24 @ 10:59 by Anabella Tamez APRN) Hypogonadism in male 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 Fry Excision, Lesion (04/18/18) squamous cell cancer left dorsum of hand with skin graft from left thigh Family History Mother , Breast cancer at age 76. Breast cancer Father Throat cancer Heart disease Myocardial infarction Sister No problems noted. Social History Smoking/Tobacco Use Status: Former Tobacco Use Smoking risk assessment performed?: Yes Alcohol Intake: current Alcohol Intake frequency: holidays/special occasions only Drug use: Never Housing: house Do you feel safe at home: Yes Do you feel safe in your relationship?: Yes SDOH(Care Management) Screening Will the Patient Participate in the Screening?: Yes Do you worry about having a steady place to live?: no Problems where you live: no known problems In the past 12 months, have you had to go without electric, gas, oil or water in your home?: no Have you or anyone in your house had to go without enough food to eat?: no Has lack of transportation kept you from medical appointments or from doing things needed for daily living?: no Has anyone in your support network made you feel unsafe for any reason?: no Health Related Social Needs Health related social needs details: none
[2024-05-29 14:52] VITALS: BP 127/66; PULSE 82; RESP 17; TEMP 36.6; O2SAT 98
[2024-05-29] MEDS: MAGNESIUM SULFATE 2 GM/50 ML BAG IVINF (16:43)
[2024-05-29 19:22] VITALS: BP 92/60; PULSE 72; RESP 18; TEMP 36.6; O2SAT 98
[2024-05-30 04:09] VITALS: BP 109/81; PULSE 65; RESP 16; TEMP 36.8; O2SAT 97
[2024-05-30 06:33] LABS: Abs Immature Grans 0.06 10^3/uL (0.0-0.06); Absolute Basophil Count 0.02 10^3/uL (0.0-0.2); Absolute Eosinophil Count 0.03 10^3/uL (0.0-0.7); Absolute Lymphocyte Count 1.37 10^3/uL (1.2-3.4); Basophils % 0.1 %; Eosinophils % 0.2 %; HCT 39.2 % (40.0-50.0); HGB 13.3 g/dL (13.5-17.5); Immature Grans % 0.4 %; MCH 31.5 pg (27.0-33.0); MCHC 33.9 % (32.0-36.0); MCV 93 fL (80-95); MPV 10.1 fL (8.0-11.0); Monocytes % 5.9 %; Neutrophils % 84.4 %; Platelet Count 204 10^3/uL (130-400); RBC 4.22 10^6/uL (4.36-5.78); RDW 12.8 % (11.8-14.1); RDW-SD 43.9 fL
[2024-05-30 06:34] LABS: Absolute Neutrophil Count 12.83 10^3/uL (1.2-6.7)
[2024-05-30 06:51] LABS: Anion Gap 3.9 mmol/L (3-11); BUN 14 mg/dL (7-18); CO2 32.1 mmol/L (21.0-32.0); CREATININE 1.2 mg/dL (0.70-1.30); Calcium 9.3 mg/dL (8.5-10.1); Chloride 100 mmol/L (98-107); Estimated GFR 63.07 (mL/min/1.73m2); Glucose 93 mg/dL (74-106); Magnesium 1.9 mg/dL (1.8-2.4); Potassium 4.3 mmol/L (3.5-5.1); Sodium 136 mmol/L (136-145)
[2024-05-30 07:31] VITALS: BP 128/73; PULSE 61; RESP 17; TEMP 36.5; O2SAT 98
[2024-05-30] MEDS: Normal Saline Flush 10 ML SYR IVP (08:01)
[2024-05-30] MEDS: Aspirin 81 MG CHEW PO (08:58)
--- NOTE | 2024-05-30 09:27 | PDOC.CMPRO ---
Date of service: 05/30/24 Time of Service: 09:27 Care Management Progress Note Discharge Potential Discharge Needs: PCP F/U Appt Anticipated Barriers to Discharge: None Identified Patient/Family Education Needs: Review discharge instructions, discuss Ask Me Three Transportation: Private vehicle Plan: Anticipate Mika will be discharged home with no new services. He will follow up with his community providers and plan of care and transport with family. CM will follow and continue to support discharge needs., SDOH(Care Management) Screening Will the Patient Participate in the Screening?: Yes Do you worry about having a steady place to live?: no Problems where you live: no known problems In the past 12 months, have you had to go without electric, gas, oil or water in your home?: no Have you or anyone in your house had to go without enough food to eat?: no Has lack of transportation kept you from medical appointments or from doing things needed for daily living?: no Has anyone in your support network made you feel unsafe for any reason?: no Health Related Social Needs Health related social needs details: none
[2024-05-30] MEDS: cefTRIAXone 1 GM/50 ML BAG IVPB (10:11)
--- NOTE | 2024-05-30 11:09 | DSE_ITS ---
Date of service: 05/30/24 Time of Service: 11:09 DS: Diagnosis Discharge Diagnosis (1) Severe sepsis: Status: Acute (2) Urinary tract infection: Status: Acute (3) Infectious encephalopathy: Status: Acute (4) Diabetes mellitus type 2, insulin dependent: Status: Acute (5) Hypertension: Status: Acute (6) Hypothyroidism: Status: Acute (7) Hyperlipidemia: Status: Acute Discharge Plan Disposition Patient Disposition: Home Condition: Improving Discharge Details Reason For Visit: Severe Sepsis, UTI Admit Date/Time: 05/28/24 10:55 Admit Provider: Reid Rogers Attending Provider: Reid Rogers Primary Care Provider: Luis Mcclellan Hospital Course Hospital Course: This 73 years old male patient with past medical history of hyperlipidemia, hypothyroidism, hypertension, diabetes mellitus type 2 on insulin presented to the ED at [facility] on 05/28/2024 with complaints of malaise. Patient reported waking up at 3 AM with feeling of dizziness, chills and feeling very hot. At 7 AM the patient woke up again feeling normal. At the time the patient denied chest pain, shortness of breath, cough, dysuria, or increased urinary frequency relative to baseline. Spouse mention having had a sore throat the day prior to presentation. No further complaints at the time of presentation. Workup in the ED showed leukocytosis at 10, lactic at 1.7, TSH at 10 with free T4 at 0.5. Urinalysis showed evidence of moderate leuk esterase, WBC 10-20, many bacteria, and a few epithelial cells. The patient appeared mildly confused as per ED provider notes with mentioning that the patient gets like this when he has a urinary tract infection. In the ED the patient was treated with 2 g of IV ceftriaxone and IV fluids. Case was discussed with hospitalist Dr. Rogers and the patient was admitted to the medical surgical floor for evaluation and management of severe sepsis and UTI. During the stay, treatment proceeded with IV ceftriaxone. Other chronic conditions were manage after home medicine regimen. Within 24 hours the patient showed no further signs of encephalopathy or confusion. The patient remained afebrile with normal vital signs. Renal ultrasound was completed showing borderline urinary retention and prostate hypertrophy with recommendation for u rology follow-up as per primary care practitioner. The patient will be discharged home on a short course of cefpodoxime oral and will have to follow-up with his primary care practitioner within 7 days of discharge. Discussed with Dr. Rogers Home Meds and New Rx's Prescriptions: New cefpodoxime 200 mg tablet 200 mg PO BID Qty: 10 0RF Rx Instructions: must administer with a meal/food Continued simvastatin 80 MG tablet 80 mg PO DAILY insulin glargine [Basaglar KwikPen U-100 Insulin] 100 UNIT/1 ML insulin pen 80 unit SQ DAILY aspirin 81 MG tablet,chewable 81 mg PO DAILY lisinopril 10 mg tablet 10 mg PO DAILY metformin 1,000 mg tablet 1,000 mg PO .am metformin 500 mg tablet extended release 24 hr 500 mg PO QPM metoprolol succinate [Toprol XL] 100 mg tablet extended release 24 hr 100 mg PO DAILY levothyroxine [Euthyrox] 150 mcg tablet 150 mcg PO DAILY multivitamin 1 EACH capsule 1 ea PO DAILY nitroglycerin 0.4 mg tablet, sublingual 0.4 mg SL Q5M PRN (Reason: chest pain) Qty: 30 0RF Rx Instructions: until response; do not exceed 3 doses per episode vitamin B complex [B-Complex] Tablet 1 tab PO DAILY Discharge Instructions Stand Alone Forms: Nursing Discharge Form Referrals: Luis Mcclellan [Primary Care Provider] - 06/05/24 11:30 am Activity:: Activity as Tolerated Equipment/Supplies:: No Equipment Needed Diet:: heart healthy diabetic Discharge Orders Discharge Orders: Discharge Order (Routine); Ordered 05/30/24 Ordered By: Anabella Tamez DS: Summary Time Spent with Patient providing and/or coordinating discharge services: Greater than 30 minutes Status at Discharge Functional status at discharge: independent ambulation Overall status at discharge: patient is progressing back to baseline Mental Status: mental status grossly normal Speech and Movement: speech and movement normal Mood: congruent mood Affect: normal affect Quality:SDOH Health Related Social Needs: Health related social needs details none Health related social needs details: none Exam Narrative Exam Narrative: Ambulating in room w/o acute distress Neuro:alert and oriented X 4 Resp: Clear lung bilaterally Cardio: regular rhythm, S1, S2, positive pulses to all 4 ext. GI: Abdomen is not distended, soft and non tender, bowel sounds are present : Negative Costovertebral angle tenderness Integumentary: No skin lesions or rash on exposed skin Psych: RASS 0, congruent mood and normal affect. Psych Mental Status: mental status grossly normal Speech and Movement: speech and movement normal Mood: congruent mood Affect: normal affect DS: Data Vitals/I&O Vitals and I&O: Vital Signs Temperature 36.5 C 05/30/24 07:31 Temperature Source Tympanic 05/30/24 07:31 Pulse 61 05/30/24 07:31 Pulse Rhythm Regular 05/30/24 07:53 Pulse 83 05/28/24 11:10 Respiratory Rate 17 05/30/24 07:31 Respiratory Effort Normal 05/30/24 07:53 Respiratory Depth Normal 05/30/24 07:53 Respiratory Pattern Normal 05/30/24 07:53 Blood Pressure 128/73 05/30/24 07:31 Blood Pressure Mean 82 05/28/24 11:01 Pulse Oximetry 98 05/30/24 07:31 Oxygen Delivery Method Room Air 05/30/24 07:31 Oxygen Flow Rate 0 05/30/24 07:31 Pain Level 0 05/30/24 07:31 Intake & Output 05/29/24 05/29/24 05/30/24 11:59 23:59 11:59 Intake Total 337.917 / 337.917 Output Total 300 / 700 400 / 700 Balance -300 / -362.083 -62.083 / -362.083 Intake: IV 97.917 / 97.917 Oral 240 / 240 Output: Urine 300 / 700 400 / 700 Other: Urine Color Pale Yellow Urine Appearance Clear Clear Clear Comment patient up to bathroom independently; denies complaints or concerns voiding see above assessment Voiding Methods Urinal Toilet Data Completed and Pending Labs on day of discharge: Labs from last 24 hours 05/30/24 06:19 WBC 15.20 H RBC 4.22 L Hgb 13.3 L Hct 39.2 L MCV 93 MCH 31.5 MCHC 33.9 RDW 12.8 Plt Count 204 MPV 10.1 Immature Gran % 0.4 Neutrophils % 84.4 Lymphocytes % 9.0 Monocytes % 5.9 Eosinophils % 0.2 Basophils % 0.1 Nucleated RBC % 0.0 Absolute Neutrophils 12.83 H Absolute Lymphocytes 1.37 Absolute Monocytes 0.90 H Absolute Eosinophils 0.03 Absolute Basophils 0.02 Sodium 136 Potassium 4.3 Chloride 100 Carbon Dioxide 32.1 H Anion Gap 3.9 BUN 14 Creatinine 1.2 Est GFR (CKD-EPI 2020) 63.07 Glucose 93 Calcium 9.3 Magnesium 1.9 Preliminary micro results at discharge 05/28/24 09:23 Urine Culture - Preliminary Urine - Reflex from Ua Escherichia coli 05/28/24 09:35 Blood Culture - Preliminary Blood NO GROWTH 24 HOURS 05/28/24 09:15 Blood Culture - Preliminary Blood NO GROWTH 24 HOURS PFSH All Active Problems (Updated 05/29/24 @ 10:59 by Anabella Tamez APRN) On deep vein thrombosis (DVT) prophylaxis (Acute) Urinary tract infection (Acute) Urinary tract infection (Acute) Diabetes mellitus type 2, insulin dependent (Acute) Infectious encephalopathy (Acute) Severe sepsis (Acute) Hyperlipidemia (Acute) Skin lesion of right ear (Acute) Discharge planning issues (Acute) DVT prophylaxis (Acute) Hypothyroidism (Acute) Hypertension (Acute) Chest pain (Acute) Medical History (Updated 05/29/24 @ 10:59 by Anabella Tamez APRN) Hypogonadism in male 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 Fry Excision, Lesion (04/18/18) squamous cell cancer left dorsum of hand with skin graft from left thigh Family History Mother , Breast cancer at age 76. Breast cancer Father Throat cancer Heart disease Myocardial infarction Sister No problems noted. Social History Smoking/Tobacco Use Status: Former Tobacco Use Smoking risk assessment performed?: Yes Alcohol Intake: current Alcohol Intake frequency: holidays/special occasions only Drug use: Never Housing: house Do you feel safe at home: Yes Do you feel safe in your relationship?: Yes Time Spent with Patient Time Spent with Patient: 45-69 minutes Time was spent: preparing to see the patient(eg.review tests), obtaining and/or reviewing separately otained hiistory, ordering medications,tests, procedures, referring, communicating with other health youth care professional, indepentently interpreting results, counseling the patient and care coordination
--- NOTE | 2024-05-30 15:30 | PDOC.CMDIS ---
Date of service: 05/30/24 Time of Service: 15:31 LACE Index Scoring Tool Questions: Length of Stay (in days): 2 Was the patient admitted via the E.D.?: Yes Comorbidities: Diabetes w/o Complication E.D. Visits: 1 Answers: Total Score: 7 Risk of Readmission: Low Risk Care Management Discharge Plan Reason for Hospitalization: sepsis, UTI Discharge Plan: Mika is discharged home with no new services. He will follow up with PCP and continue plan of care. He will transport home via private vehicle with his significant other, Ade. Patient/Family Education Needs: Review of discharge instructions, follow up plan and Ask me three. SDOH Health Related Social Needs: Health related social needs details none Health related social needs details: none
== END 2024-05-30 11:48 | disposition home or self-care (01) ==
LOC: ER 09:26 → MS 11:58
PROVIDERS: Nurse Practitioner Acute Care; Admitting Provider Family Medicine; Emergency Provider Student in an Organized Health Care Education/Training Program; PCP Physician Assistant; Visit Provider Family Medicine
DX: A41.9 Sepsis, unspecified organism (principal); R65.20 Severe sepsis without septic shock; N39.0 Urinary tract infection, site not specified; G93.49 Other encephalopathy; E11.9 Type 2 diabetes mellitus without complications; Z79.4 Long term (current) use of insulin; I10 Essential (primary) hypertension; E03.9 Hypothyroidism, unspecified; E78.5 Hyperlipidemia, unspecified; Z79.899 Other long term (current) drug therapy; N40.1 Benign prostatic hyperplasia with lower urinary tract symptoms; R33.9 Retention of urine, unspecified
CPT/HCPCS: 00123; 36415; 76770; 80048; 80053; 84145; 85027; 87040; 87077; 87637; 93005; 96365; 96366; 96367; 99285; 71045; 81003; 81015; 83605; 83735; 84439; 84443; 84484; 85025; 87086; 87186; 93010; 99222; 99233; 99239; G0378; J0696; J1815; J3475

== ENCOUNTER 2025-03-18 10:04 | Outpatient (REF) | payer MEDICARE, BC, SELFPAY ==
[2025-03-18 15:13] LABS: HCT 43.9 % (40.0-50.0); HGB 14.4 g/dL (13.5-17.5); MCH 31.2 pg (27.0-33.0); MCHC 32.8 % (32.0-36.0); MCV 95 fL (80-95); MPV 10.6 fL (8.0-11.0); Platelet Count 235 10^3/uL (130-400); RBC 4.62 10^6/uL (4.36-5.78); RDW 12.1 % (11.8-14.1); RDW-SD 42.1 fL; WBC 7.28 10^3/uL (4.4-10.8)
[2025-03-18 15:25] LABS: Hemoglobin A1C 6.7 % (<5.7)
[2025-03-18 15:46] LABS: ALT 28 U/L (16-63); AST 18 U/L (15-37); Albumin 3.7 g/dL (3.4-5.0); Alkaline Phosphatase 73 U/L (46-116); Anion Gap 2.8 mmol/L (3-11); BUN 20 mg/dL (7-18); Bilirubin, Total 0.9 mg/dL (0.2-1.0); CO2 34.2 mmol/L (21.0-32.0); CREATININE 1.1 mg/dL (0.70-1.30); Calcium 9.3 mg/dL (8.5-10.1); Calculated LDL 90 mg/dL (<100); Chloride 101 mmol/L (98-107); Cholesterol 194 mg/dL (<200); Estimated GFR 69.57 (mL/min/1.73m2); Glucose 80 mg/dL (74-106); HDL Cholesterol 38 mg/dL (>or=40); Potassium 4.3 mmol/L (3.5-5.1); Sodium 138 mmol/L (136-145); TSH 1.44 uIU/mL (0.36-3.74); Total Protein 6.9 g/dL (6.4-8.2); Triglyceride 333 mg/dL (<150)
== END 2025-03-18 10:05 | disposition home or self-care (01) ==
LOC: NCHCN 10:04
PROVIDERS: PCP Physician Assistant; Visit Provider Physician Assistant
DX: I10 Essential (primary) hypertension (principal); E11.9 Type 2 diabetes mellitus without complications
CPT/HCPCS: 80053; 80061; 85027; 83036; 84443

== ENCOUNTER 2025-06-24 18:50 | Emergency (ER) | payer MEDICARE, BC, SELFPAY ==
[2025-06-24] VITALS (39 sets, daily range): BP systolic 118–177; BP diastolic 48–85; PULSE 63–94; RESP 10–23; TEMP 34.7–35.6; O2SAT 61–100
--- NOTE | 2025-06-24 19:00 | DI.CT_ITS ---
Exam(s) CT ABDOMEN PELVIS W EXAM: CT ABDOMEN PELVIS W CLINICAL HISTORY: Abdominal pain. TECHNIQUE: Imaging Protocol: Axial computed tomography images with coronal and sagittal reformatted images were created and reviewed CONTRAST MATERIAL: Intravenous: Omnipaque 350 Contrast volume:100 ml Oral: no COMPARISON: CR,XR XR PORTABLE CHEST AP from 06/24/2025 FINDINGS: ABDOMEN and PELVIS: Lung Bases: No acute findings. Respiratory motion. Mild dependent changes. Liver: Mild hepatic steatosis. No suspicious mass. Gallbladder and biliary tract: No radiodense calculus. No wall thickening or pericholecystic fluid. No biliary dilation. Pancreas: Normal density. No abnormal calcifications or inflammatory process. No evidence of mass. Spleen: Normal. Kidneys: Normal size, contour and axis. No radiodense stones. No obstructive uropathy. Right renal cysts. No suspicious masses seen. Adrenal glands: No masses seen. Vasculature: Abdominal aorta non-dilated. Mild atherosclerotic changes. Soft tissues: Unremarkable. Bladder: No gross wall thickening. No calculi.No focal mass. Bowel: No obstruction. No bowel wall thickening. Appendix normal. Moderate quantity of stool. Extensive diverticulosis throughout the colon. No evidence of diverticulitis. Peritoneal cavity: No ascites. No focal collection. No mesenteric inflammatory response. No free air. Bones: Unremarkable for age. Reproductive organs: Mildly enlarged prostate. Lymph nodes: No pathologically enlarged lymph nodes. IMPRESSION:: No acute abnormality in the abdomen or pelvis. Extensive diverticulosis without evidence of diverticulitis. The preliminary [facility] report was reviewed. RADIATION DOSE DELIVERED: 815.06mGy.cm Total DLP DATA REPOSITORY: All CT scans at this facility are submitted to the National Radiology Data Registry (NRDR) Dose Index Registry (DIR) with the [employer] ([employer]). RADIATION OPTIMIZATION: All CT scans at this facility use at least one of these dose optimization techniques: automated exposure control; mA and/or kV adjustment per patient size (includes targeted exams where dose is matched to clinical indication); or iterative reconstruction.
--- NOTE | 2025-06-24 19:48 | W.ED.GENAD ---
Discharge Plan Disposition Patient Disposition: Home Discharge Details Clinical Impression: Pneumonia, Hypothermia, Leukocytosis Primary Care Provider: Luis Mcclellan ED Provider: Sudhir Florian Home Meds and New Rx's Prescriptions: Continued simvastatin 80 MG tablet 80 mg PO DAILY insulin glargine [Basaglar KwikPen U-100 Insulin] 100 UNIT/1 ML insulin pen 80 unit SQ DAILY aspirin 81 MG tablet,chewable 81 mg PO DAILY lisinopril 10 mg tablet 10 mg PO DAILY metformin 1,000 mg tablet 1,000 mg PO .am metformin 500 mg tablet extended release 24 hr 500 mg PO QPM metoprolol succinate [Toprol XL] 100 mg tablet extended release 24 hr 100 mg PO DAILY levothyroxine [Euthyrox] 150 mcg tablet 150 mcg PO DAILY multivitamin 1 EACH capsule 1 ea PO DAILY nitroglycerin 0.4 mg tablet, sublingual 0.4 mg SL Q5M PRN (Reason: chest pain) Qty: 30 0RF Rx Instructions: until response; do not exceed 3 doses per episode vitamin B complex [B-Complex] Tablet 1 tab PO DAILY cefpodoxime 200 mg tablet 200 mg PO BID Qty: 10 0RF Rx Instructions: must administer with a meal/food memantine 10 mg tablet 10 mg PO BID Discharge Instructions Instructions: Community-Acquired Pneumonia, Adult (DC) Additional Instructions: Please follow-up with your primary care provider regarding your visit to the emergency department today. Be sure to discuss results of all test performed here today to include radiology, and laboratory testing as well as results for any pending cultures. Should your symptoms worsen, or if you develop new concerning symptoms, please return immediately emergency department for further evaluation. HPI General Date/Time Provider Initiated Documentation: 06/24/25 19:13. HPI Narrative: MDM/Narrative: Initial Assessment: General malaise with sweating, dizziness, and sudden onset of nausea. History of sepsis and dementia. Notably hypothermic on presentation Differential Diagnosis: - Infection: Symptoms of sweating, dizziness, nausea. History of sepsis. Plan: Urine test, CXR, CT scan of abdomen. - Dehydration: History of dehydration. Plan: Assess kidney function, administer fluids. - Atypical ACS: EKG, troponins ordered - Active rewarming started with bear hugger ED Course: On reassessment, patient remains cool to touch obtain core temperature which showed hypothermia, patient started on Lili hugger with significant improvement. Lab results are notable for significant leukocytosis, urinalysis is without evidence of acute infection, no organ dysfunction, elevated lactate to suggest severe sepsis. CT imaging notable for possible inflammatory changes in the lungs otherwise no significant findings. Given patient has a leukocytosis and is hypothermic, will treat with ceftriaxone and azithromycin and fluid resuscitation for management of CAP and reassess patient. 2245 On reassessment, patient is ambulatory, with significant improvement of his complaints. CURB-65 Score of 2. Plan of care discussed with the and the patient she is in agreement with plan for discharge with p.o. antibiotics, and to return for any new or worsening symptoms. This document was created with assistance from [employer]. The patient consented to its use. Disposition: Home HPI: The patient, a male with a medical history significant for diabetes mellitus, dementia, and previous sepsis, presents with general malaise. The patient was brought in by emergency medical services (EMS) after experiencing symptoms this evening following a hot tub session. Between 1630 and 1700 hours, he was found to be sweating profusely (profuse diaphoresis) and experiencing hypothermia. He has a history of dehydration and was administered fluids, which may have caused gastrointestinal distress. His primary care physician (PCP), Dr. Luis Mcclellan, was contacted and advised hospital admission due to potential upper gastrointestinal issues, considering the patient's diabetes and possible cardiac conditions. The patient reports slight nausea, which is alleviated when lying down but exacerbated when sitting up. He also describes mild discomfort associated with abdominal pressure. The patient has a history of sepsis with severe infection on 12/11/2023, which presented with confusion, inability to stand, and frequent urination, attributed to dehydration and renal failure affecting cerebral function. He is currently under observation for adequate fluid intake. An eye examination conducted today revealed no abnormalities; however, a small scab was noted on the eye, which is not painful, and he is using an unknown topical medication. The patient's dementia is described as mild. ROS: Negative besides as mentioned above Exam: Vital signs: Reviewed. General Appearance: Alert and oriented. No acute distress. HEENT: NCAT, EOMI, not icteric. External ears normal. No rhinorrhea. Moist mucous membranes. Neck: Supple, full range of motion, no observable masses, No meningeal sign. Respiratory: Clear breath sounds bilaterally Cardiovascular: RRR, no edema. Gastrointestinal: Mild tenderness in the upper abdomen Back: No midline tenderness to palpation or palpable step-offs of the C/T/L spine. Skin: Warm and dry, no rash Neurological: Normal Gait, Grossly intact. Psychiatric: Appropriate for situation. Labs: 06/24/25 22:05 Blood Blood Culture - Pending 06/24/25 21:48 Blood Blood Culture - Pending Laboratory Tests Range/Units 06/24/25 06/24/25 06/24/25 19:45 21:42 22:00 WBC (4.4-10.8) 10^3/uL 14.21 H RBC (4.36-5.78) 10^6/uL 4.92 Hgb (13.5-17.5) g/dL 14.9 Hct (40.0-50.0) % 45.0 MCV (80-95) fL 92 MCH (27.0-33.0) pg 30.3 MCHC (32.0-36.0) % 33.1 RDW (11.8-14.1) % 12.5 Plt Count (130-400) 10^3/uL 233 MPV (8.0-11.0) fL 10.5 Immature Gran % % 0.4 Neutrophils % % 87.6 Lymphocytes % % 7.2 Monocytes % % 4.5 Eosinophils % % 0.1 Basophils % % 0.2 Nucleated RBC % (0.0-0.3) % 0.0 Absolute Neutrophils (1.2-6.7) 10^3/uL 12.45 H Absolute Lymphocytes (1.2-3.4) 10^3/uL 1.02 L Absolute Monocytes (0.1-0.8) 10^3/uL 0.64 Absolute Eosinophils (0.0-0.7) 10^3/uL 0.01 Absolute Basophils (0.0-0.2) 10^3/uL 0.03 VBG Lactate (<or=2.0) mmol/L 1.1 Sodium (136-145) mmol/L 139 Potassium (3.5-5.1) mmol/L 4.6 Chloride (98-107) mmol/L 100 Carbon Dioxide (21.0-32.0) mmol/L 32.9 H Anion Gap (3-11) mmol/L 6.1 BUN (7-18) mg/dL 24 H Creatinine (0.70-1.30) mg/dL 1.4 H Est GFR (CKD-EPI 2020) (mL/min/1.73m2) 52.09 Glucose (74-106) mg/dL 211 H Calcium (8.5-10.1) mg/dL 10.4 H Magnesium (1.8-2.4) mg/dL 1.8 Total Bilirubin (0.2-1.0) mg/dL 0.7 AST (15-37) U/L 18 ALT (16-63) U/L 29 Alkaline Phosphatase (46-116) U/L 81 Troponin I (<or=76) ng/L 4 5 Total Protein (6.4-8.2) g/dL 8.2 Albumin (3.4-5.0) g/dL 4.3 Lipase (<78) U/L 28 TSH (0.36-3.74) uIU/mL 3.58 Urine Color (Yellow) Yellow Urine Clarity (Clear) Clear Urine pH (5-8) 6.0 Ur Specific [place] (1.005-1.025) 1.015 Urine Protein (Neg-Trace) mg/dL Trace Urine Ketones (Negative) mg/dL Trace H Urine Blood (Negative) Negative Urine Nitrite (Negative) Negative Urine Bilirubin (Negative) Negative Urine Urobilinogen (Up to 0.2) mg/dL 0.2 Ur Leukocyte Esterase (Negative) Negative Urine Glucose (Negative) mg/dL Negative Radiology: Exam(s) PROCEDURE INFORMATION: Exam: CT Abdomen And Pelvis With Contrast Exam date and time: 06/24/2025 8:58 PM Age: 74 years old Clinical indication: Abdominal pain; Generalized TECHNIQUE: Imaging protocol: Computed tomography of the abdomen and pelvis with contrast. Radiation optimization: All CT scans at this facility use at least one of these dose optimization techniques: automated exposure control; mA and/or kV adjustment per patient size (includes targeted exams where dose is matched to clinical indication); or iterative reconstruction. Contrast material: [id number]; Contrast volume: 100 ml; Contrast route: INTRAVENOUS (IV); COMPARISON: US RENAL 05/29/2024 12:39 FINDINGS: Lungs: There is minimal bibasilar atelectasis. There are diffuse interstitial infiltrates present. This may represent cardiogenic versus noncardiogenic edema. An acute inflammatory process and/or infectious process/pneumonia are not excluded. Pleural spaces: There is no evidence of pneumothorax. There are no pleural effusions present. Heart: The cardiac structures are normal. Coronary arteries: There is moderate atherosclerotic calcification of the coronary arteries. Liver: There is a diffuse decrease in hepatic parenchymal density, consistent with mild fatty infiltration. There are no focal liver lesions present. There is no evidence of intrahepatic or extrahepatic biliary ductal dilation. Gallbladder and biliary ducts: The gallbladder is normal. There is no cholelitiasis, wall thickening or pericholecystic fluid to suggest cholecystitis. Pancreas: Normal. No ductal dilation. Spleen: Normal. No splenomegaly. LEONIDES JUDGE Preliminary Radiology Report TUBE BENDER HAND (QA) DISCREPANCY? If there is a discrepancy between the preliminary and final interpretation, please notify [employer] via [email or web address]. If you do not have access to our QA portal, call our QA team at [phone] CONFIDENTIALITY STATEMENT This report is intended only for the use of the referring physician, and only in accordance with law, If you received this in error, call [phone] Page 2 of 2 Adrenal glands: Normal. No mass. Kidneys and ureters: The kidneys are normal. Simple appearing cysts present within the right kidney measuring 2.3 cm. Stomach and bowel: There is moderate increased colonic fecal content. The colon is mildly distended. These findings suggest a moderate degree of constipation. Clinical correlation recommended. Extensive diverticulosis is present in the ascending, transverse, descending and sigmoid colon. No evidence of diverticulitis. There is no evidence of intestinal obstruction. Appendix: A normal appendix is identified. There is no evidence of distention or periappendiceal inflammation to suggest appendicitis. Intraperitoneal space: There is no free intraperitoneal air. There is no evidence of free intraperitoneal or pelvic fluid. Vasculature: The aorta demonstrates mild atherosclerotic calcification. The arterial peripheral vasculature demonstrates diffuse mild atherosclerotic calcification. The portal, mesenteric and splenic veins are patent. Lymph nodes: There is no evidence of lymphadenopathy. Urinary bladder: Unremarkable as visualized. Reproductive: The prostate gland demonstrates calcification and moderate nonspecific enlargement. The seminal vesicles are normal. Bones/joints: The lumbar spine demonstrates moderate degenerative changes at L5-S1. Mild moderate degenerative changes of the hips bilaterally. There are moderate degenerative changes of the sacroiliac joints with ankylosis. Soft tissues: The extra-abdominal soft tissues are normal. Other findings: The inferior venacava appears normal. IMPRESSION: 1. There are diffuse interstitial infiltrates present. This may represent cardiogenic versus noncardiogenic edema. An acute inflammatory process and/or infectious process/pneumonia are not excluded. 2. Extensive diverticulosis is present in the ascending, transverse, descending and sigmoid colon. No evidence of diverticulitis. 3. Otherwise, no definitive explanation for patient's current clinical presentation elicited on this study. Thank you for allowing us to participate in the care of your patient. Dictated and Authenticated by: Evgeny Sims MD 06/24/2025 9:29 PM Eastern Time ([place] & [place]) Related Data Home Medications ?Medication ?Instructions ?Recorded ?Confirmed Basaglar KwikPen U-100 Insulin 100 80 unit SQ DAILY 02/26/18 06/24/25 unit/mL (3 mL) subcutaneous (insulin glargine) aspirin 81 mg chewable tablet 81 mg PO DAILY 02/26/18 06/24/25 simvastatin 80 mg tablet 80 mg PO DAILY 02/26/18 06/24/25 multivitamin 1 ea PO DAILY 03/26/18 06/24/25 nitroglycerin 0.4 mg sublingual 0.4 mg sublingual Q5M PRN chest 07/19/19 06/24/25 tablet pain #30 tabs levothyroxine 150 mcg tablet 150 mcg PO DAILY 05/30/23 06/24/25 (Euthyrox) lisinopril 10 mg tablet 10 mg PO DAILY 05/30/23 06/24/25 metformin 1,000 mg tablet 1,000 mg PO .am 05/30/23 06/24/25 metformin 500 mg tablet,extended 500 mg PO QPM 05/30/23 06/24/25 release 24 hr metoprolol succinate 100 mg 100 mg PO DAILY 05/30/23 06/24/25 tablet,extended release 24 hr (Toprol XL) vitamin B complex (B-Complex 1 tab PO DAILY 05/28/24 06/24/25 tablet) cefpodoxime 200 mg tablet 200 mg PO BID #10 tabs 05/30/24 06/24/25 memantine 10 mg tablet 10 mg PO BID 06/24/25 06/24/25 Previous Rx's ?Medication ?Instructions ?Recorded nitroglycerin 0.4 mg sublingual 0.4 mg sublingual Q5M PRN chest 07/19/19 tablet pain #30 tabs cefpodoxime 200 mg tablet 200 mg PO BID #10 tabs 05/30/24 Allergies Allergy/AdvReac Type Severity Reaction Status Date / Time No Known Allergies Allergy Unverified 06/24/25 19:07 General Stated Complaint: Abd Prob SHARAD: 3 Course Vital Signs Vital signs: Vital Signs Temperature 35.6 C L 06/24/25 19:00 Pulse 63 06/24/25 19:00 Respiratory Rate 16 06/24/25 19:00 Blood Pressure 129/82 06/24/25 19:00 Pulse Oximetry 98 06/24/25 19:00 Temperature 35.6 C L 06/24/25 19:00 Temperature Source Oral 06/24/25 19:00 Pulse 63 06/24/25 19:00 Respiratory Rate 16 06/24/25 19:00 Blood Pressure 129/82 06/24/25 19:00 Pulse Oximetry 98 06/24/25 19:00 Oxygen Delivery Method Room Air 06/24/25 19:00 Oxygen Flow Rate 0 06/24/25 19:00 Pain Level 3 06/24/25 19:00 Medical Decision Making Quality:SDOH Health Related Social Needs: Health related social needs details none PFSH All Active Problems (Updated 06/24/25 @ 23:14 by Sudhir Florian MD) Leukocytosis (Acute) Hypothermia (Acute) Pneumonia (Acute) Urinary tract infection (Acute) Diabetes mellitus type 2, insulin dependent (Acute) Severe sepsis (Acute) Hyperlipidemia (Acute) Skin lesion of right ear (Acute) DVT prophylaxis (Acute) Hypothyroidism (Acute) Hypertension (Acute) Chest pain (Acute) Medical History (Updated 06/24/25 @ 23:14 by Sudhir Florian MD) Urinary tract infection Hypogonadism in male 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 Fry Excision, Lesion (04/18/18) squamous cell cancer left dorsum of hand with skin graft from left thigh Family History Mother , Breast cancer at age 76. Breast cancer Father Throat cancer Heart disease Myocardial infarction Sister No problems noted. Social History Smoking/Tobacco Use Status: Former Tobacco Use Smoking risk assessment performed?: Yes Alcohol Intake: former Drug use: Never Substance use type: does not use Details: stopped drinking alcohol since September 2024 Housing: house Do you feel safe at home: Yes Do you feel safe in your relationship?: Yes
[2025-06-24] MEDS: Normal Saline 1,000 ML 1000 ML IV (19:53)
[2025-06-24] MEDS: Ondansetron 4 MG/2 ML VIAL IVP (19:54)
[2025-06-24 19:55] LABS: Abs Immature Grans 0.06 10^3/uL (0.0-0.06); HCT 45.0 % (40.0-50.0); HGB 14.9 g/dL (13.5-17.5); Immature Grans % 0.4 %; MCH 30.3 pg (27.0-33.0); MCHC 33.1 % (32.0-36.0); MCV 92 fL (80-95); MPV 10.5 fL (8.0-11.0); Platelet Count 233 10^3/uL (130-400); RBC 4.92 10^6/uL (4.36-5.78); RDW 12.5 % (11.8-14.1); RDW-SD 41.4 fL; WBC 14.21 10^3/uL (4.4-10.8)
--- NOTE | 2025-06-24 20:01 | DI.RAD_ITS ---
Exam(s) XR PORTABLE CHEST AP EXAM: XR PORTABLE CHEST AP CLINICAL HISTORY: Abdominal pain TECHNIQUE: 2D digital imaging was performed. COMPARISON: CR XR PORTABLE CHEST AP from 05/28/2024 FINDINGS: LUNGS: Clear. No pleural abnormality seen. HEART: Normal size. AORTA: Normal diameter. BONES: Unremarkable for age. Soft tissues: Unremarkable. IMPRESSION: No acute findings. DATA REPOSITORY: RADIATION DOSE DELIVERED:
[2025-06-24 20:14] LABS: ALT 29 U/L (16-63); AST 18 U/L (15-37); Albumin 4.3 g/dL (3.4-5.0); Alkaline Phosphatase 81 U/L (46-116); Anion Gap 6.1 mmol/L (3-11); BUN 24 mg/dL (7-18); Bilirubin, Total 0.7 mg/dL (0.2-1.0); CO2 32.9 mmol/L (21.0-32.0); Calcium 10.4 mg/dL (8.5-10.1); Chloride 100 mmol/L (98-107); Estimated GFR 52.09 (mL/min/1.73m2); Glucose 211 mg/dL (74-106); Lipase 28 U/L (<78); Magnesium 1.8 mg/dL (1.8-2.4); Potassium 4.6 mmol/L (3.5-5.1); Sodium 139 mmol/L (136-145); Total Protein 8.2 g/dL (6.4-8.2); Troponin I 4 ng/L (<or=76)
[2025-06-24 20:19] LABS: TSH (W/Ref FT4) 3.58 uIU/mL (0.36-3.74)
--- NOTE | 2025-06-24 20:31 | DI.VRAD_ITS ---
PROCEDURE INFORMATION: Exam: XR Chest Exam date and time: 06/24/2025 8:02 PM Age: 74 years old Clinical indication: Other: Abdominal pain TECHNIQUE: Imaging protocol: Radiologic exam of the chest. Views: 1 view. COMPARISON: CR XR PORTABLE CHEST AP 04/28/2024 09:41 FINDINGS: Lungs: Atelectasis left lower lobe of the lung versus scarring. There is no evidence of focal pulmonary consolidation. The pulmonary vasculature is normal. Pleural spaces: There is no evidence of pneumothorax. There are no pleural effusions present. Heart/Mediastinum: The cardiac silhouette is within normal limits. The mediastinum is normal. Bones/joints: Degenerative changes thoracic spine present. The spine, sternum, ribs, and pectoral girdles show no evidence of acute abnormality Soft tissues: There are no soft tissue masses or calcifications. IMPRESSION: 1. Degenerative changes thoracic spine present. 2. Atelectasis left lower lobe of the lung versus scarring. Dictated and Authenticated by: Evgeny Sims MD. Orderin Chiqui Peguero MD
[2025-06-24] MEDS: Omnipaque 350 MG/ML 100 ML BTL IJ (20:58)
[2025-06-24] MEDS: Normal Saline - Diluent 50 ML VIAL IJ (20:58)
[2025-06-24] MEDS: Normal Saline Flush 10 ML SYR IVP (20:59)
--- NOTE | 2025-06-24 21:30 | DI.VRAD_ITS ---
PROCEDURE INFORMATION: Exam: CT Abdomen And Pelvis With Contrast Exam date and time: 06/24/2025 8:58 PM Age: 74 years old Clinical indication: Abdominal pain; Generalized TECHNIQUE: Imaging protocol: Computed tomography of the abdomen and pelvis with contrast. Radiation optimization: All CT scans at this facility use at least one of these dose optimization techniques: automated exposure control; mA and/or kV adjustment per patient size (includes targeted exams where dose is matched to clinical indication); or iterative reconstruction. Contrast material: [id number]; Contrast volume: 100 ml; Contrast route: INTRAVENOUS (IV); COMPARISON: US RENAL 05/29/2024 12:39 FINDINGS: Lungs: There is minimal bibasilar atelectasis. There are diffuse interstitial infiltrates present. This may represent cardiogenic versus noncardiogenic edema. An acute inflammatory process and/or infectious process/pneumonia are not excluded. Pleural spaces: There is no evidence of pneumothorax. There are no pleural effusions present. Heart: The cardiac structures are normal. Coronary arteries: There is moderate atherosclerotic calcification of the coronary arteries. Liver: There is a diffuse decrease in hepatic parenchymal density, consistent with mild fatty infiltration. There are no focal liver lesions present. There is no evidence of intrahepatic or extrahepatic biliary ductal dilation. Gallbladder and biliary ducts: The gallbladder is normal. There is no cholelitiasis, wall thickening or pericholecystic fluid to suggest cholecystitis. Pancreas: Normal. No ductal dilation. Spleen: Normal. No splenomegaly. Adrenal glands: Normal. No mass. Kidneys and ureters: The kidneys are normal. Simple appearing cysts present within the right kidney measuring 2.3 cm. Stomach and bowel: There is moderate increased colonic fecal content. The colon is mildly distended. These findings suggest a moderate degree of constipation. Clinical correlation recommended. Extensive diverticulosis is present in the ascending, transverse, descending and sigmoid colon. No evidence of diverticulitis. There is no evidence of intestinal obstruction. Appendix: A normal appendix is identified. There is no evidence of distention or periappendiceal inflammation to suggest appendicitis. Intraperitoneal space: There is no free intraperitoneal air. There is no evidence of free intraperitoneal or pelvic fluid. Vasculature: The aorta demonstrates mild atherosclerotic calcification. The arterial peripheral vasculature demonstrates diffuse mild atherosclerotic calcification. The portal, mesenteric and splenic veins are patent. Lymph nodes: There is no evidence of lymphadenopathy. Urinary bladder: Unremarkable as visualized. Reproductive: The prostate gland demonstrates calcification and moderate nonspecific enlargement. The seminal vesicles are normal. Bones/joints: The lumbar spine demonstrates moderate degenerative changes at L5-S1. Mild moderate degenerative changes of the hips bilaterally. There are moderate degenerative changes of the sacroiliac joints with ankylosis. Soft tissues: The extra-abdominal soft tissues are normal. Other findings: The inferior venacava appears normal. IMPRESSION: 1. There are diffuse interstitial infiltrates present. This may represent cardiogenic versus noncardiogenic edema. An acute inflammatory process and/or infectious process/pneumonia are not excluded. 2. Extensive diverticulosis is present in the ascending, transverse, descending and sigmoid colon. No evidence of diverticulitis. 3. Otherwise, no definitive explanation for patient's current clinical presentation elicited on this study. Dictated and Authenticated by: Evgeny Sims MD. Orderin Chiqui Peguero MD
[2025-06-24 22:08] LABS: Troponin I 5 ng/L (<or=76)
[2025-06-24 22:13] LABS: Glucose Negative (Negative)
[2025-06-24] MEDS: cefTRIAXone 2 GM/50 ML BAG IVPB (22:15)
[2025-06-24] MEDS: AZITHROMYCIN 500 MG in Normal Saline 250 ML 250 MG IVPB (22:52)
[2025-06-24] MEDS: Amox. 875/Clav. 125, 2 TABS/BTL 1 TAB PO (23:52)
[2025-06-24] MEDS: Doxycycline Hyclate 100 MG, 2 CAPS/BTL PO (23:52)
== END 2025-06-24 23:56 | disposition home or self-care (01) ==
PROVIDERS: Emergency Provider General Practice; PCP Physician Assistant
DX: J18.9 Pneumonia, unspecified organism (principal); T68.XXXA Hypothermia, initial encounter; E11.9 Type 2 diabetes mellitus without complications; D72.829 Elevated white blood cell count, unspecified
CPT/HCPCS: 36416; 80053; 82962; 83690; 87040; 96361; 96365; 96367; 96375; 99285; 71045; 74177; 81003; 83605; 83735; 84443; 84484; 85025; J0456; J0696; J2405; J3490